=== PATIENT | female | born 1995 | race Caucasian/White ===

== ENCOUNTER 2016-06-16 17:36 | Emergency (ER) | payer MEDICAID ==
[~2016-06-16] VITALS: Ht 172.7 cm; Wt 85.3 kg
[~2016-06-16 17:36] MED LIST: FLEXERIL5 MG PO; IRON TABLETS325 MG PO; MACROBID 100MG100 MG PO; MOTRIN 400MG.400 MG PO; NITROFURANTOIN100 M4 PO; PERCOCET 5/3251 EACH PO; PRENATAL PLUS1 TA1 PO; TYLENOL WITH CO1 TA1 PO; VOLTAREN75 MG PO; [UNRECOGNIZED DRUG - REMARK]
--- NOTE | 2016-06-16 17:39 | Emergency Room Report ---
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 Clinical Suspician of Infection? Mental Status: Sepsis Risk: Have you (or family members/close friends) recently traveled outside the [place]? If Yes, where/when: Have you had exposure to infectious disease within the past month? TB? Other? Specify: Source patient, RN notes reviewed Exam Limitations no limitations Comment Pt is a [id number] who is now about 20 weeks gestation and has been told she has a small umbilical hernia by Dr. Montilla. 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 Sometimes the hernia hurts but it has never turned red or blue but she is tender in the upper part of the umbilicus. Cardiac Chest Pain Chest pain indicative of cardiac No ALLERGIES Coded Allergies: meperidine (From DEMEROL) (Mild, 03/24/16) Home Medications Active Scripts ACETAMINOPHEN WITH CODEINE (Tylenol With Codeine #3 Tablet) 1 TAB PO Q8HP PRN pain #12 TAB Prov: 03/24/16 Reported Medications MULTIVIT-MIN W/FE-FA ( Multivitamin Tablet) 1 TAB PO MIDDAY NITROFURANTOIN MONOHYD/M-CRYST (Nitrofurantoin [place]-Mcr 100 MG) 100 MG PO DAILY #10 History Medical History General CAD? No Angina: No MA: No Hypertension? No Hyperlipidemia? No CHF? No DVT? No PE? No COPD? No Asthma? No Anemia? No GERD? No Gastric ulcers? No GI Bleed? No Hernia? No Thyroid Problems? No Hypothyroidism? No CVA? No Seizures? No Diabetes? No Renal Insuffiency? No End Stage Renal Disease? No UTI? No Stones? No BPH? No GB Disease: No Nephritic Syndrome? No Asplenia? No Hepatitis? No Sickle Cell Disease? No Arthritis? No Migraines? No Cataracts? No Glaucoma? No MRSA? No HIV? No TB? No Anxiety? No Depression? No Cancer? No More? No Immunization Hx DT/Tetanus 1-4 YRS Flu 7070-7813 Flu Season Pneumonia Refuses Surgical Hx Previous Surgery?Y WISDOM TEETH Family History Family Hx Diabetes Yes Hypertension Yes Cancer Yes TB No Social History Alcohol Alcohol: No Review of Systems All Other Systems Reviewed and Negative Constitutional see HPI Gastrointestinal see HPI Genitourinary see HPI. Physical Exam Vital Signs Vital Signs Date Time Temp Pulse Resp B/P Pulse O2 O2 Flow FiO2 Ox Delivery Rate 06/16 1741 98.4 99 18 147/94 94 General Appearance normal appearance, WD/WN, no apparent distress Respiratory Status No: respiratory distress. Lung Sounds bilateral: normal breath sounds. Cardiovascular normal exam, regular rate/rhythm Gastrointestinal normal bowel sounds (FHT's 156), hernia (small umbilical hernia ) Neurologic alert, youth development specialist II-XII nml as tested Medical Decision Making LABS/Meds/Orders Pt receiving controlled substance in ED? No Results/Orders Laboratory Tests 06/16/16 1800: Urine Color YELLOW, Urine Appearance SL CLOUDY, Urine pH 6.0, Ur Specific [place] >= 1.030, Urine Protein NEGATIVE, Urine Ketones NEGATIVE, Urine Blood NEGATIVE, Urine Nitrate NEGATIVE, Urine Bilirubin NEGATIVE, Urine Urobilinogen 1.0, Ur Leukocyte Esterase TRACE H, Urine WBC 20-50, Ur Squamous Epith Cells 5- 10, Urine Bacteria 3+, Urine Mucus 1+, Urine Glucose NEGATIVE Orders Procedure Date/time Status CULTURE, URINE 06/16 1800 Active URINALYSIS/COMPLETE 06/16 175 Complete URINE 06/16 175 Complete Departure Departure Time of Disposition 1846 [facility]position [facility](routine) Clinical Impression Primary Impression: Cystitis without hematuria Secondary Impressions: Intrauterine Umbilical hernia without mention of obstruction or gangrene Qualifiers: Obstruction and gangrene presence: without obstruction or gangrene Qualified Code: K42.9 - Umbilical hernia without obstruction or gangrene Condition STABLE Referrals Shad WARE,Romie Min Patient Instructions DI for Urinary Tract Infection (UTI), Urinary Tract Infection Additional Instructions Pt given prescription for Amoxicillin 500 mg TID for UTI and instructed what to watch for with umbilical hernia regarding incarceration or strangulation. Advised to followup with OBGYN in the next 3 to 4 days to recheck urine as well. Also given excuse for Light duty only at work until seen by OBGYN on Saturday Discharge Counseling Counseled pt/family regarding diagnosis, test results, medications/RX, home care Prescriptions Current Visit Scripts Amoxicillin (Amoxicillin 500MG) 500 MG PO TID #30 CAP ED Critical Care Critical Care No If Critical Care minutes are documented, the time involved in the performance of seperately reportable procedures was not counted toward critical care time documented. I directly delivered medical care to this critically ill and/or injured patient. Timely evaluation and treatment was necessary to address the significant organ system(s) dysfunction present in this patient. at [id number]
--- NOTE | 2016-06-16 17:39 | Emergency Room Report ---
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 Clinical Suspician of Infection? Mental Status: Sepsis Risk: Have you (or family members/close friends) recently traveled outside the [place]? If Yes, where/when: Have you had exposure to infectious disease within the past month? TB? Other? Specify: Source patient, RN notes reviewed Exam Limitations no limitations Comment Pt is a [id number] who is now about 20 weeks gestation and has been told she has a small umbilical hernia by Dr. Montilla. 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 Sometimes the hernia hurts but it has never turned red or blue but she is tender in the upper part of the umbilicus. Cardiac Chest Pain Chest pain indicative of cardiac No ALLERGIES Coded Allergies: meperidine (From DEMEROL) (Mild, 03/24/16) Home Medications Active Scripts ACETAMINOPHEN WITH CODEINE (Tylenol With Codeine #3 Tablet) 1 TAB PO Q8HP PRN pain #12 TAB Prov: 03/24/16 Reported Medications MULTIVIT-MIN W/FE-FA ( Multivitamin Tablet) 1 TAB PO MIDDAY NITROFURANTOIN MONOHYD/M-CRYST (Nitrofurantoin [place]-Mcr 100 MG) 100 MG PO DAILY #10 History Medical History General CAD? No Angina: No [place]: No Hypertension? No Hyperlipidemia? No CHF? No DVT? No PE? No COPD? No Asthma? No Anemia? No GERD? No Gastric ulcers? No GI Bleed? No Hernia? No Thyroid Problems? No Hypothyroidism? No CVA? No Seizures? No Diabetes? No Renal Insuffiency? No End Stage Renal Disease? No UTI? No Stones? No BPH? No GB Disease: No Nephritic Syndrome? No Asplenia? No Hepatitis? No Sickle Cell Disease? No Arthritis? No Migraines? No Cataracts? No Glaucoma? No MRSA? No HIV? No TB? No Anxiety? No Depression? No Cancer? No More? No Immunization Hx DT/Tetanus 1-4 YRS Flu 3604-0374 Flu Season Pneumonia Refuses Surgical Hx Previous Surgery?Y WISDOM TEETH Family History Family Hx Diabetes Yes Hypertension Yes Cancer Yes TB No Social History Alcohol Alcohol: No Review of Systems All Other Systems Reviewed and Negative Constitutional see HPI Gastrointestinal see HPI Genitourinary see HPI. Physical Exam Vital Signs Vital Signs Date Time Temp Pulse Resp B/P Pulse O2 O2 Flow FiO2 Ox Delivery Rate 06/16 1741 98.4 99 18 147/94 94 General Appearance normal appearance, WD/WN, no apparent distress Respiratory Status No: respiratory distress. Lung Sounds bilateral: normal breath sounds. Cardiovascular normal exam, regular rate/rhythm Gastrointestinal normal bowel sounds (FHT's 156), hernia (small umbilical hernia ) Neurologic alert, deputy clerk of court II-XII nml as tested Medical Decision Making LABS/Meds/Orders Pt receiving controlled substance in ED? No Results/Orders Laboratory Tests 06/16/16 1800: Urine Color YELLOW, Urine Appearance SL CLOUDY, Urine pH 6.0, Ur Specific [place] >= 1.030, Urine Protein NEGATIVE, Urine Ketones NEGATIVE, Urine Blood NEGATIVE, Urine Nitrate NEGATIVE, Urine Bilirubin NEGATIVE, Urine Urobilinogen 1.0, Ur Leukocyte Esterase TRACE H, Urine WBC 20-50, Ur Squamous Epith Cells 5- 10, Urine Bacteria 3+, Urine Mucus 1+, Urine Glucose NEGATIVE Orders Procedure Date/time Status CULTURE, URINE 06/16 1800 Active URINALYSIS/COMPLETE 06/16 175 Complete URINE 06/16 175 Complete Departure Departure Time of Disposition 1846 Disposition [place] Home or Self Care(routine) Clinical Impression Primary Impression: Cystitis without hematuria Secondary Impressions: Intrauterine Umbilical hernia without mention of obstruction or gangrene Qualifiers: Obstruction and gangrene presence: without obstruction or gangrene Qualified Code: K42.9 - Umbilical hernia without obstruction or gangrene Condition STABLE Referrals Shad WARE,Romie Min Patient Instructions DI for Urinary Tract Infection (UTI), Urinary Tract Infection Additional Instructions Pt given prescription for Amoxicillin 500 mg TID for UTI and instructed what to watch for with umbilical hernia regarding incarceration or strangulation. Advised to followup with OBGYN in the next 3 to 4 days to recheck urine as well. Also given excuse for Light duty only at work until seen by OBGYN on Saturday Discharge Counseling Counseled pt/family regarding diagnosis, test results, medications/RX, home care Prescriptions Current Visit Scripts Amoxicillin (Amoxicillin 500MG) 500 MG PO TID #30 CAP ED Critical Care Critical Care No If Critical Care minutes are documented, the time involved in the performance of seperately reportable procedures was not counted toward critical care time documented. I directly delivered medical care to this critically ill and/or injured patient. Timely evaluation and treatment was necessary to address the significant organ system(s) dysfunction present in this patient. at [id number]
[2016-06-16 18:12] LABS: URINE BILIRUBIN - DIPSTICK NEGATIVE (NEG); URINE BLOOD NEGATIVE (NEG)
[2016-06-16] MEDS ORDERED: AMOXICOT500 MG PO (18:52)
[2016-06-16 19:10] VITALS: BP 136/88
== END 2016-06-16 19:10 | disposition home or self-care (01) ==
LOC: ER 17:36
PROVIDERS: General Practice
DX: O23.12 Infections of bladder in pregnancy, second trimester (principal); N30.00 Acute cystitis without hematuria; Z3A.20 20 weeks gestation of pregnancy

== ENCOUNTER 2016-07-27 18:13 | Outpatient (CLI) | payer MEDICAID ==
[~2016-07-27] VITALS: Ht 172.7 cm; Wt 88.9 kg
[~2016-07-27 18:13] MED LIST changes: +AMOXICOT500 MG PO
[2016-07-27 18:51] VITALS: BP 141/80
[2016-07-27] MEDS ORDERED: IRON TABLETS325 MG PO (18:55)
[2016-07-27] MEDS ORDERED: MIRALAX17 GM/PACK PO (18:56)
[2016-07-27 19:39] LABS: URINE BILIRUBIN - DIPSTICK NEGATIVE (NEG); URINE BLOOD NEGATIVE (NEG)
[2016-07-27 19:53] LABS: URINE SQUAMOUS CELLS 50-100 #/hpf (0-5)
== END 2016-07-27 19:50 | disposition home or self-care (01) ==
LOC: OBOUT 18:13 → OB 18:15 → OBOUT 19:50
PROVIDERS: Obstetrics & Gynecology
DX: O26.92 Pregnancy related conditions, unspecified, second trimester (principal); Z3A.25 25 weeks gestation of pregnancy

== ENCOUNTER → 2016-09-19 | Outpatient (CLI) | payer MEDICAID ==
[~2016-09-19] MED LIST changes: +CLASSIC PRENAT1 EACH PO; +FERROUS SULFAT200 M1 PO; +MIRALAX17 GM/PACK PO
--- NOTE | 2016-09-19 15:15 | RADIOLOGY REPORT PS360 ---
PROCEDURE: 2-D M-mode and color Doppler study INDICATIONS FOR THE TEST: Chest pain COPD Heart Murmur Tobacco Smoking Palpitations+ Fatigue Syncope Edema Hypertension+Diabetes Mellitus Rheumatic Fever SOB+SMITH Obesity Hyperlipidemia Family History HD Additional History due November 03 SV PATIENT INFORMATION HEIGHT: 68 WEIGHT: 203 GENDER: Female B/P: 119/79 2-D/M-MODE INTERPRETATION: 2-D MEASUREMENTS OBSERVED VALUES IN CMS Right Ventricular Dimension (RVDd) 1.4 Interventricular Septum (Thickness)(IVsd) 0.8 Left Ventricular Internal Dimensions(LVIDd) 5.0 Left Ventricular Posterior Wall (Thickness)(LVPWd) 0.9 Aortic Root 2.3 Aortic Cusp Separation 2.3 Left Atrial Dimensions (LAD) 3.4 2D 1. Left atrium is normal size, left ventricle is normal size, there is preserved left ventricular systolic function, visually estimated ejection fraction of 55% with no obvious regional wall motion abnormality. 2. The right atrium and right ventricle are normal size and contractility. 3. The aortic mitral and tricuspid valve is structurally normal. 4. The pulmonic valve is not well visualized. 5. No significant pericardial effusion noted. DOPPLER INTERROGATION: Doppler interrogation of the aortic mitral and tricuspid valve reveals presence of trace mitral and tricuspid regurgitation of no hemodynamic significance. Diastolic parameters are within normal range CONCLUSION: 1. Normal left ventricular size, visually estimated to fraction 55% with no obvious regional wall motion abnormality. 2. Trace mitral and tricuspid regurgitation, tricuspid and enteric velocity insufficient for acquisition of the right ventricular systolic pressure. 3. The diastolic parameters are within normal range. 4. No significant pericardial effusion noted.
== END ==
LOC: RT 13:45
DX: I47.1 Supraventricular tachycardia (principal)

== ENCOUNTER 2017-03-02 17:33 | Emergency (ER) | payer MEDICAID ==
[~2017-03-02] VITALS: Ht 170.2 cm; Wt 81.6 kg
[~2017-03-02 17:33] MED LIST changes: +BISOPROLOL 5MG T5 MG PO; +FERROUS SULFAT325 M2 PO; +KEFLEX500 M1; +LANOXIN0.125 MG PO
--- OUTSIDE RECORDS SUMMARY | 2017-03-02 17:50 | External Medical Summary Rpt | CCD ---
Author Author , TRAE LARKIN Address Unknown Phone [email or web address] Care Team Providers Care Educational Director Name Role Phone [facility] Unavailable Unavailable [place], [facility] [place] RADHA DOCKERY MD, Unavailable Unavailable RADHA Garcia MD, Unavailable Unavailable Ton Garcia MD Purpose Continuity of Care Document - 04-12-2010 through 2016 Problems Code Diagnosis DOS Provider Status 558.9 558.9 08-12-2012 [facility] IT NEC 780.79 780.79 OTH 08-12-2012 [facility]&FAT [facility] 847.2 847.2 07-14-2012 [facility] Allergies, Adverse Reactions, Alerts Type Allergy to substance Adverse Reaction to Substance Substance Reaction Severity NO KNOWN ALLERGIES Unknown Unknown Medications Na ND Rx Da Fi Fi Am Da Di Ph RX Ph St me C No te ll ll ou ys ag ar # ys at rm s nt no ma ic us Or Da si cy ia de te s n re d AC 51 03 0 No ET 07 -1 AM 90 1- Lo IN 16 20 ng OP 19 13 er HE 9H N Ac W/ ti CO ve DE IN E #3 TA K IN 51 03 0 No DO 07 -1 ME 90 1- Lo TH 19 20 ng AC 02 13 er IN 0 Ac 25 ti ve MG CA PS UL E BA 00 03 10 2 60 10 EA 21 RI Ac NO 90 -2 -[address] 79 SH ti PH 45 2- 5- 00 SI 78 ER ve EN 30 20 20 DE 66 11 11 RI 25 0 PH CH AR AR MG MA D CY CA PS OF UL E CY NT HI AN A BA 00 03 09 2 60 10 EA 21 RI Ac NO 90 -2 -[address] 79 SH ti PH 45 2- 2- 00 SI 78 ER ve EN 30 20 20 DE 66 11 11 RI 25 0 PH CH AR AR MG MA D CY CA PS OF UL E CY NT HI AN A PE 00 09 09 1 60 1 EA 24 MO Ac RM 47 -2 -[address] 17 SE ti ET 20 0- 0- 00 SI 44 S ve HR [address] IN 26 11 11 EP 0 PH HE 5% AR N MA A CR CY EA M OF CY NT HI AN A ME 00 09 09 0 21 6 EA 24 MO Ac TH 78 -2 -[address] 17 SE ti YL 15 0- 0- 00 SI 45 S ve NV [address] ED 20 11 11 EP NI 7 PH HE SO AR N LO MA A NE CY 4 OF MG CY DO NT SE HI PK AN A CE 45 09 09 2 30 30 EA 24 MO Ac TI 80 -2 -[address] 17 SE ti RI 20 0- 0- 00 SI 46 S ve ZI [address] NE 98 11 11 EP 7 PH HE HC AR N L MA A 10 CY MG OF TA CY BL NT ET HI AN A ST 00 06 06 0 4. 1 EA 23 AT Ac RO 00 -2 -[address] 06 KI ti ME 60 3- 3- 0 SI [address] 03 20 20 DE OL 22 11 11 TR 3 0 PH AC AR I MG MA V CY TA BL OF ET CY NT HI AN A CE 45 04 05 2 30 30 EA 22 AT Ac TI 80 -1 -[address] 11 KI ti RI 20 4- 7- 00 SI 97 NS ve ZI 91 20 20 DE NE 98 11 11 TR 7 PH AC HC AR I L MA V 10 CY MG OF TA CY BL NT ET HI AN A PA 00 04 04 0 5. 30 EA 22 RI Ac TA 06 -2 -[address] 19 SH ti NO 50 0- 0- 0 SI 59 ER ve L 27 20 20 DE 0. 10 11 11 RI 1% 5 PH CH AR AR EY MA D E CY DR OP OF S CY NT HI AN A 00 04 04 2 50 30 EA 22 AT Ac 06 -1 -[address] 11 KI ti 60 4- 4- 00 SI 95 NS ve 49 20 20 DE 45 11 11 TR 5 PH AC AR I MA V CY OF CY NT HI AN A TR 45 04 04 0 45 15 EA 22 AT Ac IA 80 -1 -[address] 11 KI ti MC 20 4- 4- 00 SI 96 NS ve IN 06 20 20 0 DE OL 40 11 11 TR ON 5 PH AC E AR I 0. MA V 1% CY CR OF EA M CY NT HI AN A CE 45 04 04 2 30 30 EA 22 AT Ac TI 80 -1 -[address] 11 KI ti RI 20 4- 4- 00 SI 97 NS ve ZI 91 20 20 DE NE 98 11 11 TR 7 PH AC HC AR I L MA V 10 CY MG OF TA CY BL NT ET HI AN A BA 00 03 03 2 60 10 EA 21 RI Ac NO 90 -2 -[address] 79 SH ti PH 45 2- 2- 00 SI 78 ER ve EN 30 20 20 DE 66 11 11 RI 25 0 PH CH AR AR MG MA D CY CA PS OF UL E CY NT HI AN A PE 00 03 03 0 59 1 EA 21 RI Ac RM 47 -2 -[address] 78 SH ti ET 25 1- 1- 00 SI 46 ER ve HR 24 20 20 DE IN 26 11 11 RI 7 PH CH 1% AR AR MA D LO CY TI ON OF CY NT HI AN A PE 00 03 03 0 60 1 EA 21 RI Ac RM 47 -1 -[address] 68 SH ti ET 20 4- 4- 00 SI 53 ER ve HR 24 20 20 DE IN 26 11 11 RI 0 PH CH 5% AR AR MA D CR CY EA M OF CY NT HI AN A HY 16 02 02 1 30 5 EA [address] 71 -2 -[address] 35 SH ti OX 40 2- 2- 00 SI 90 ER ve YZ 08 20 20 DE IN 20 11 11 RI E 4 PH CH HC AR AR L MA D 25 CY MG OF TA CY BL NT ET HI AN A [place] 00 12 12 0 6. 5 EA 20 WR Ac IT 09 -3 -[address] 61 IG ti HR 37 1- 1- 0 SI 97 HT ve OM 14 20 20 DE YC 61 10 10 AR IN 8 PH DY AR C 25 MA 0 CY MG OF TA BL CY ET NT HI AN A CE 00 12 12 0 21 7 EA 20 WR Ac PH 09 -1 -[address] 45 IG ti AL 33 8- 8- 00 SI 64 HT ve EX 14 20 20 DE IN 70 10 10 AR 5 PH DY 50 AR C 0 MA MG CY CA OF PS UL CY E NT HI AN A 60 12 12 0 12 3 EA 20 WR Ac 25 -1 -[address] 45 IG ti 80 8- 8- 00 SI 65 HT ve 23 20 20 0 DE 91 10 10 AR 6 PH DY AR C MA CY OF CY NT HI AN A RA 53 12 12 2 60 30 EA 20 MO Ac NI 74 -0 -[address] 31 SE ti TI 60 8- 8- 00 SI 04 S ve DI [address] NE 30 10 10 EP 5 PH HE 15 AR N 0 MA A MG CY TA OF BL ET CY NT HI AN A Vital Signs 08-12-2012 15:27 Name Value Interpretat Reference Comment ion Range BP 59 mm[Hg] Diastolic BP Systolic 113 mm[Hg] Heart 85 /min Rate/Pulse O2% 100 % Respiratory 20 /min Rate 08-12-2012 15:02 Name Value Interpretat Reference Comment ion Range Body 98.7 [degF] Temperature 08-12-2012 14:01 Name Value Interpretat Reference Comment ion Range BP 68 mm[Hg] Diastolic BP Systolic 115 mm[Hg] Heart 112 /min Rate/Pulse O2% 100 % Respiratory 20 /min Rate 07-14-2012 22:33 Name Value Interpretat Reference Comment ion Range BP 60 mm[Hg] Diastolic BP Systolic 111 mm[Hg] Heart 101 /min Rate/Pulse O2% 98 % Respiratory 20 /min Rate 07-14-2012 22:08 Name Value Interpretat Reference Comment ion Range BP 68 mm[Hg] Diastolic BP Systolic 131 mm[Hg] Heart 109 /min Rate/Pulse O2% 100 % Respiratory 20 /min Rate Results Labs Lab Lab Date Result Refere Interp Status Commen Order Detail nces retati t Range on B-HCG Ur Ql (08-12-2012 14:15) B-HCG NEGATIV NEG complet Ur Ql 013 E ed 14:15 URINALYSIS/COMPLETE (08-12-2012 14:15) URINE YELLOW YELLOW complet COLOR 013 ed 14:15 URINE Sl CLEAR complet APPEARA 013 Cloudy ed NCE 14:15 URINE NEGATIV NEG complet GLUCOSE 013 E ed - 14:15 DIPSTIC K URINE NEGATIV NEG complet BILIRUB 013 E ed IN - 14:15 DIPSTIC K URINE NEGATIV NEG complet KETONE 013 E mg/dL ed 14:15 URINE 1.010 1.005-1 complet SPECIFI 013 UNK .030 ed C 14:15 GRAVITY URINE NEGATIV NEG complet BLOOD 013 E ed 14:15 URINE 6.0 UNK 5.0-8.5 complet PH 013 ed 14:15 URINE NEGATIV NEG complet PROTEIN 013 E mg/dL ed - 14:15 DIPSTIC K URINE 0.2 NEG complet UROBILI 013 E.U./dL ed NOGEN - 14:15 DIPSTIC K URINE NEGATIV NEG complet NITRATE 013 E ed - 14:15 DIPSTIC K URINE 1+ NEG complet LEUK 013 ed ESTERAS 14:15 E URINE 5-10 O complet WBC 013 wbc/hpf ed 14:15 URINE 20-50 0-5 complet SQUAMOU 013 #/hpf ed S CELLS 14:15 URINE 1+ O complet BACTERI 013 ed A 14:15 B-HCG Ur Ql (07-14-2012 21:25) B-HCG NEGATIV NEG complet Ur Ql 013 E ed 21:25 URINALYSIS/COMPLETE (07-14-2012 21:25) URINE YELLOW YELLOW complet COLOR 013 ed 21:25 URINE Sl CLEAR complet APPEARA 013 Cloudy ed NCE 21:25 URINE NEGATIV NEG complet GLUCOSE 013 E ed - 21:25 DIPSTIC K URINE 07-14-2 NEGATIV NEG complet BILIRUB 013 E ed IN - 21:25 DIPSTIC K URINE 07-14-2 NEGATIV NEG complet KETONE 013 E mg/dL ed 21:25 URINE 1.025 1.005-1 complet SPECIFI 013 UNK .030 ed C 21:25 GRAVITY URINE 07-14-2 NEGATIV NEG complet BLOOD 013 E ed 21:25 URINE 07-14-2 6.5 UNK 5.0-8.5 complet PH 013 ed 21:25 URINE 2 NEGATIV NEG complet PROTEIN 013 E mg/dL ed - 21:25 DIPSTIC K URINE 2.0 NEG complet UROBILI 013 E.U./dL ed NOGEN - 21:25 DIPSTIC K URINE NEGATIV NEG complet NITRATE 013 E ed - 21:25 DIPSTIC K URINE NEGATIV NEG complet LEUK 013 E ed ESTERAS 21:25 E URINE 5-10 0 complet RBC 013 rbc/hpf ed 21:25 URINE 3-5 O complet WBC 013 wbc/hpf ed 21:25 URINE 10-20 0-5 complet SQUAMOU 013 #/hpf ed S CELLS 21:25 URINE 1+ O complet BACTERI 013 ed A 21:25 Encounters Encounter Start End Date Code Location Performer Type Date Emergency ANNE DOCKERY MD (ER) 3 13:26 3 15:27 [facility] Emergency ANNE Garcia MD (ER) 3 21:43 3 22:35 [facility]
--- OUTSIDE RECORDS SUMMARY | 2017-03-02 17:50 | External Medical Summary Rpt | CCD ---
Author Author , TRAE LARKIN Address Unknown Phone [email or web address] Care Team Providers Care Electroplating Technician Name Role Phone [facility] Unavailable Unavailable [place], [facility] [place] RADHA DOCKERY MD, Unavailable Unavailable RADHA Garcia MD, Unavailable Unavailable Ton Garcia MD Purpose Continuity of Care Document - 04-12-2010 through 2016 Problems Code Diagnosis DOS Provider Status 558.9 558.9 08-12-2012 [facility] IT NEC 780.79 780.79 OTH 08-12-2012 [facility]&FAT [facility] 847.2 847.2 07-14-2012 [facility] Allergies, Adverse Reactions, Alerts Type [...] 0- 0- 00 SI 45 S ve FL [address] ED 20 [...] DOCKERY MD (ER) 3 13:26 3 15:27 [facility] Emergency ANNE Garcia MD (ER) 3 21:43 3 22:35 [facility]
[2017-03-02] MEDS ORDERED: AMOXICILLIN 50500 MG PO (17:54)
--- OUTSIDE RECORDS SUMMARY | 2017-03-02 17:55 | External Medical Summary Rpt | CCD ---
Author Author , TRAE Tirado TRAE Address Unknown Phone [email or web address] [facility] Care Team Providers Care Hogshead Hand Name Role Phone A Ashlie WOODARD MD PSC, Scot Unavailable Unavailable Ashlie WOODARD MD PSC [facility], Unavailable Unavailable [facility] ATKINS TRA, ATKINS Unavailable Unavailable TRA KORTNEY CHERRIE, KORTNEY CHERRIE Unavailable Unavailable JESUS, JESUS Unavailable Unavailable JOHNSON, JOHNSON Unavailable Unavailable JOHNSON JAQUI, JOHNSON Unavailable Unavailable JAQUI JOHNSON JAQUI, JOHNSON Unavailable Unavailable JAQUI [facility] Unavailable Unavailable [place], [facility] Unavailable Unavailable [facility] [place], [facility]UE MARYJANE, MARYJANE Unavailable Unavailable ANTHONY ARISTEO, ANTHONY Unavailable Unavailable ARISTEO [facility] Unavailable Unavailable [facility], [facility] [place] DENNIS SHA, DENNIS Unavailable Unavailable SHA FEEBACK, FEEBACK Unavailable Unavailable FIELD AMB, FIELD AMB Unavailable Unavailable FIELD AMB, FIELD AMB Unavailable Unavailable FRYMAN EUG, FRYMAN Unavailable Unavailable EUG JR CLEMENCIA, CLEMENCIA, Unavailable Unavailable JR OMAIRA, OMAIRA Unavailable Unavailable OMAIRA ARISTEO, OMAIRA Unavailable Unavailable ARISTEO KAITLIN CROW MD, Unavailable Unavailable KAITLIN CROW MD HARPEL, HARPEL Unavailable Unavailable HARPEL FORTINO, HARPEL Unavailable Unavailable FORTINO [facility] Unavailable Unavailable [place], [facility] Unavailable Unavailable [place], [facility] Unavailable Unavailable [facility], [facility] Unavailable Unavailable [facility], [facility] Unavailable Unavailable INC, [facility] Unavailable Unavailable [facility], [facility] Unavailable Unavailable [facility] P, [facility] P MAGALLANES HARRIS, MAGALLANES HARRIS Unavailable Unavailable MAGALLANES HARRIS, MAGALLANES HARRIS Unavailable Unavailable GRACE MAGALLANES A, Unavailable Unavailable GRACE MAGALLANES A [facility], Unavailable Unavailable [facility], [facility] KILPELA JEA, KILPELA Unavailable Unavailable JEA KILPELA JEA, KILPELA Unavailable Unavailable JEA ANGELA JR, ANGELA JR Unavailable Unavailable CATRACHO TOD, CATRACHO TOD Unavailable Unavailable CATRACHO TOD, CATRACHO TOD Unavailable Unavailable MULBERRY, JESSICA T, Unavailable Unavailable MULBERRY, JESSICA T ESTEFANIA MAC Unavailable Unavailable O'MEKA ASHWINI, O'MEKA Unavailable Unavailable ASHWINI [facility], Unavailable [facility]available [facility], [facility] PICKMATTHEW JR, Unavailable Unavailable PICKLESIMER JR [facility], Unavailable Unavailable [facility], Unavailable Unavailable [facility] NEFTALY LARISSA, NEFTALY Unavailable Unavailable LARISSA NEFTALY, ILIR, Unavailable Unavailable NEFTALY, ILIR [facility], Unavailable Unavailable [facility] CAM SCIFRES ANG, SCIFRES Unavailable Unavailable ANG SCIFRES ANG, SCIFRES Unavailable Unavailable ANG SCIFRES MICHAELA M, Unavailable Unavailable SCIFRES, MICHAELA M ZOFIA ARMIJO Unavailable Unavailable NICHOLAS SHE, Unavailable Unavailable NICHOLAS SHE [facility] Unavailable Unavailable [facility] Unavailable Unavailable PH[facility]ICIANS, [facility] EVELIO [facility], Unavailable Unavailable [place], [facility] Unavailable Unavailable DEPT [facility], [facility] DEPT [facility] Unavailable Unavailable DEPT [facility], [facility] DEPT [facility] MINGO LEVIN Unavailable Unavailable MINGO LEVIN Unavailable Unavailable WOODARD A, WOODARD A Unavailable Unavailable WOODARD ZHANE, WOODARD Unavailable Unavailable ZHANE Purpose Continuity of Care Document - 06-10-2007 through 2016 Problems Code Diagnosis DOS Provider Status I471 SUPRAVENTRI 12-20-2016 [facility] TACHYCARDIA PHYSICIANS R002 PALPITATION 12-20-2016 [facility] R0602 SHORTNESS 12-20-2016 OF BREATH [facility] [id number] OTHER LONG 12-20-[address] [facility] CURRENT [facility] DRUG [facility] THERAPY O36284 ENCOUNTER 12-12-2016 [facility] INSERTION PHYSICIANS INTRAUTERIN GROUP E CONTRACEPT DEVC Z392 ENCOUNTER 11-28-2016 [facility] FOLLOW-UP N858 OTHER 10-30-2016 [facility] NONINFLAMMA INC TORY DISORDERS UTERUS B88651 MATERNAL 10-30-2016 [facility] CARE LW PHYSICIANS TRANS SCAR GROUP PREV DEL J67970 MATERNAL 10-30-2016 [facility] CARE UNS ANESTH OF TYPE SCAR THE BLUE PREV DEL [id number] MATERNAL 10-30-2016 [facility] INC GROWTH 3RD TRI NA/UNS O655 OBSTRUCTED 10-30-2016 [facility] DUE [facility] ABNORMAL INC MAT PELVIC ORGANS O82 ENCOUNTER 10-30-2016 [facility] FOR CD PHYSICIANS WITHOUT GROUP INDICATION Z370 SINGLE LIVE 10-30-2016 [facility] Z3A39 39 WEEKS 10-30-2016 [facility]STATION [facility] OF INC Z3480 ENC 10-29-2016 [facility] SUPERVISION PHYSICIANS OTH NORMAL GROUP PREG UNS TRIMESTER Z3493 ENC 10-25-2016 [facility] SUPERVISION PHYSICIANS NORMAL GROUP UNS 3 TRIMESTER O4703 FALSE LABOR 10-04-2016 [facility] BEFORE 37 PHYSICIANS CMPLETE GROUP WEEKS GEST 3RD TRI O6003 10-04-2016 [facility] LABOR [facility] WITHOUT INC DELIVERY THIRD TRIMESTER Z3A35 35 WEEKS 10-04-2016 [facility] OF INC O2693 09-25-2016 [facility] CONDITIONS INC UNS 3RD TRIMESTER Z331 09-25-2016 [facility] STATE PHYSICIANS INCIDENTAL GROUP Z3A32 32 WEEKS 09-11-2016 [facility] OF INC O9989 OTH DZ & 09-09-2016 [facility] COMP [facility], PREG PLLC CHILDBIRTH PUERPERIUM R000 TACHYCARDIA 09-09-2016 [facility] P U41099 ABNORMAL 07-30-2016 [facility] GLUCOSE PHYSICIANS COMPLICATIN GROUP G O2692 07-27-2016 [facility] CONDITIONS INC UNS 2ND TRIMESTER Z3A25 25 WEEKS 07-27-2016 [facility] OF INC O471 FALSE LABOR 07-25-2016 [facility] AT/AFTER PHYSICIANS 37 GROUP COMPLETED WEEKS GEST Z3492 ENC 06-29-2016 [facility] MEDICAL NORMAL IMAGING ASS UNS 2 TRIMESTER Z36 ENCOUNTER 06-29-2016 [facility] FOR [facility] INC SCREENING OF MOTHER Z3A22 22 WEEKS 06-29-2016 [facility] OF IMAGING ASS K429 UMBILICAL 06-16-2016 [facility] HERNIA [facility], WITHOUT PLLC OBSTRUCTION OR GANGRENE N3000 ACUTE 06-16-2016 [facility]STITIS [facility] WITHOUT INC HEMATURIA O2312 INFECTIONS 06-16-2016 [facility] BLADDER IN PHYSICIANS, [facility] SECOND TRIMESTER Z3A20 20 WEEKS 06-16-2016 [facility] GESTATION PHYSICIANS, OF [facility] Z3491 ENC 03-26-2016 [facility] MEDICAL NORMAL IMAGING ASS UNS 1 TRIMESTER Z3A00 WEEKS OF 03-26-2016 [facility] GESTATION [facility] OF INC NOT SPECIFIED Z3A08 8 WEEKS 03-26-2016 [facility] OF IMAGING ASS M545 LOW BACK 03-24-2016 [facility] PAIN [facility]YSICIANS, [facility] O2691 03-24-2016 [facility], CONDITIONS [facility] UNS 1ST TRIMESTER Z3201 ENCOUNTER 03-19-2016 [facility] FOR PHYSICIANS GROUP TEST RESULT POSITIVE H5203 HYPERMETROP 01-16-2016 MAGALLANES HARRIS IA BILATERAL W41305 ENCOUNTER 10-11-2015 [facility] INITIAL PHYSICIANS PRESCRIPTIO GROUP N CONTRACEPT PILLS Z3009 ENCOUNTER 10-11-2015 [facility] OT GENERAL PHYSICIANS GROUP [employer]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 CONTRACEPT L22666 ACUTE 08-30-2015 [facility] SUPPURATIVE PHYSICIANS OM W/O GROUP RUPT EAR DRUM UNS EAR J0190 ACUTE 08-30-2015 [facility] SINUSITIS PHYSICIANS UNSPECIFIED GROUP J029 ACUTE 08-30-2015 [facility] PHARYNGITIS PHYSICIANS GROUP UNSPECIFIED Z3040 ENCOUNTER 06-09-2015 [facility] FOR PHYSICIANS SURVEILLANC GROUP E CONTRACEPTI VES UNS J069 ACUTE UPPER 04-20-2015 A Ashlie WOODARD MD PSC RESPIRATORY INFECTION UNSPECIFIED B349 VIRAL 02-28-2015 A Ashlie WOODARD INFECTION [facility] UNSPECIFIED 3670 HYPERMETROP 01-28-2015 SCIFRES ANG IA V2542 SURVEILLANC 12-10-2014 [facility] E PREV PRSC PHYSICIANS INTRAUTERN GROUP CNTRACPT DEVC V2549 SURVEILLANC 12-10-2014 [facility] E OTH PREV PHYSICIANS PRSC GROUP CONTRACEPT METHOD 3688 OTHER 09-24-2014 [facility] VISUAL DISTURBANCE S 52497 UNSPECIFIED 08-25-2014 A Ashlie WOODARD INFECTIVE PSC OTITIS EXTERNA 65548 ACUTE 08-25-2014 A Ashlie WOODARD SEROUS PSC OTITIS MEDIA 82737 DYSFUNCTION 08-25-2014 A Ashlie FLETCHER PSC EUSTACHIAN TUBE V8522 BODY MASS 08-25-2014 A Ashlie WOODARD INDEX PSC 26.0-26.9 ADULT 4660 ACUTE 07-12-2014 A Ashlie WOODARD BRONCHITIS PSC 3829 UNSPECIFIED 06-28-2014 A Ashlie WOODARD OTITIS PSC MEDIA 7840 HEADACHE 06-16-2014 [facility] V2511 ENC FOR 04-20-2014 [facility] INSERTION PHYSICIANS INTRAUTERIN GROUP E CONTRACEPT DEVICE V242 ROUTINE 03-29-2014 [facility] PHYSICIANS FOLLOW-UP GROUP 77582 FETOPELVIC 03-15-2014 [facility] DISPROPORTI PHYSICIANS ON, GROUP DELIVERED 82289 UNUSUALLY 03-15-2014 [facility] LARGE FETUS PHYSICIANS CAUS GROUP DISPROPRTN DELIVERED 17976 EXCESS 03-15-2014 [facility] PHYSICIANS GROWTH GROUP AFFECT MGMT MOTH ANTPRTM 88328 C/S DELIV 03-15-2014 COMMUNITY W/O INDICAT ANESTH OF DELIV W/WO THE BLUE ANTPRTM COND V270 OUTCOME OF 03-15-2014 [facility] DELIVERY PHYSICIANS SINGLE GROUP LIVEBORN 93553 POLYHYDRAMN 03-11-2014 [facility] IOS PHYSICIANS ANTEPARTUM GROUP COMPLICATIO N 19773 OTHER 03-09-2014 KAITLIN Schilling THREATENED [facility] LABOR, ANTEPARTUM 28826 THREATENED 03-07-2014 [facility] LABOR INC ANTEPARTUM V220 SUPERVISION 03-03-2014 ALEX JAQUI OF NORMAL FIRST V286 SCREENING 02-24-2014 ALEX NAILS OF STREPTOCOCC US B 4779 ALLERGIC 02-23-2014 A Ashlie WOODARD RHINITIS PSC CAUSE UNSPECIFIED 17745 UNSPEC 02-18-2014 KAITLIN Schilling MALCONNOR CROW MD /MALPRESENT ATION FETUS ANTPRTM 7821 RASH AND 02-04-2014 Scot CARTWRIGHT MD PSC NONSPECIFIC SKIN ERUPTION 53187 ABN MAT 12-26-2013 [facility] GLUCOSE [facility] TOLERANCE INC COMPL PG CB/PP UNS EOC 32817 ABNORMAL 12-21-2013 [facility]LEX NA[facility]S MATERNAL GLUCOSE TOLERANCE ANTEPARTUM 462 ACUTE 12-17-2013 FIELD AMB PHARYNGITIS 4659 ACUTE URIS 12-17-2013 FIELD AMB OF UNSPECIFIED SITE 7242 LUMBAGO 12-10-2013 [facility] INC V222 12-10-2013 [facility] INCIDENTAL INC V283 ENCOUNTER 11-11-2013 [facility] ROUTINE SCREEN MALFORMATIO N ULTRASONIC 24760 ASYMPTOMATI 09-02-2013 [facility] Dailey BACTERIURIA ANTEPARTUM 96533 ACUTE 08-27-2013 FIELD [facility] GINGIVITIS PLAQUE INDUCED 55673 OTHER 08-27-2013 FIELD AMB SPECIFIED TMJ DISORDERS 78362 OTHER 08-06-2013 [facility] SPECIFED COMPLICATIO N ANTEPARTUM V2389 SUPERVISION 07-27-2013 [facility] NA[facility] OF OTHER HIGH-RISK V7242 07-27-2013 [facility] NA[facility] EXAMINATION OR TEST POSITIVE RESULT V2689 OTHER 07-22-2013 [facility] SPECIFIED DISTRICT PROCREATIVE [facility] DEPT MANAGEMENT DARRYN 27483 UNSPECIFIED 07-15-2013 KILPELA JEA VIRAL INFECTION IN CCE & UNS SITE 95184 POSTNASAL 07-13-2013 [facility] DRIP PHYSICIANS GROUP 5990 URINARY 06-29-2013 [facility] TRACT PHYSICIANS INFECTION GROUP SITE NOT SPECIFIED 6264 IRREGULAR 06-29-2013 [facility] MENSTRUAL PHYSICIANS CYCLE GROUP 5589 OTH&UNSPEC 05-18-2013 FIELD AMB NONINFECTIO US GASTROENTER ITIS&COLITI S 01201 FEVER 04-15-2013 KILPELA JEA UNSPECIFIED V720 EXAMINATION 02-27-2013 MAGALLANES HARRIS OF EYES AND VISION 73528 URINARY 01-17-2013 A Ashlie WOODARD FREQUENCY PSC 8488 OTHER 11-27-2012 A Ashlie WOODARD SPECIFIED PSC SITES OF SPRAINS AND STRAINS 72247 ABDOMINAL 08-26-2012 A Ashlie WOODARD PAIN, PSC GENERALIZED 25597 OTHER 08-12-2012 [facility] FATIGUE INC 8472 LUMBAR 07-14-2012 [facility] SPR[facility] STRAIN INC 75862 NAUSEA 05-21-2012 KILPELA JEA ALONE 463 ACUTE 02-26-2012 [facility] TOD TONSILLITIS 55772 NAUSEA WITH 09-18-2011 [facility] TOD VOMITING 74053 CONTUSION 08-07-2011 [facility] TOD OF KNEE 1330 SCABIES 06-18-2011 CAT[facility] TOD V2541 SURVEILLANC 06-07-2011 [facility] E PREV HEALTH PRESCRIBED CENTER CONTRACEPT PILL 2662 OTHER 04-11-2011 [facility] B-COMPLEX HEALTH DEFICIENCIE CENTER S 6918 OTHER 01-23-2011 A Ashlie WOODARD ATOPIC PSC DERMATITIS AND RELATED CONDITIONS V2501 GENERAL 01-16-2011 [facility] COUNSELING HEALTH PRESCRIPTIO CENTER N ORAL CONTRACEPTS V069 NEED PROPH 10-31-2010 [facility] VACCINATION HEALTH W/UNSPEC CENTER COMB VACCINE V2509 OTH GENERAL 10-31-2010 [facility] CNSL&ADVICE CENTER CONTRACEPT MANAGEMENT 2165 BENIGN 10-26-2010 [facility] 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 6982 PRURIGO 10-26-2010 [facility] 5368 DYSPEPSIA&O 09-07-2010 [facility] CO THER SPEC MIDDLE DISORDERS SCHOOL FUNCTION STOMACH 9953 ALLERGY 08-23-2010 A Ashlie WOODARD UNSPECIFIED PSC NOT ELSEWHERE CLASSIFIED 00462 OTHER 08-21-2010 [facility] CO DISEASES OF MIDDLE NASAL SCHOOL CAVITY AND SINUSES 6929 CONTACT 08-17-2010 [facility] DERMATITIS& DERMATOLOGY OTHER ECZEMA DUE UNSPEC CAUSE 7061 OTHER ACNE 08-17-2010 [facility] 7068 OTHER 08-17-2010 [facility] SPECIFIED DERMATOLOGY DISEASE OF SEBACEOUS GLANDS 63954 DYSCHROMIA, 08-17-2010 [facility] UNSPECIFIED 6989 UNSPECIFIED 07-13-2010 [facility] CO PRURITIC MIDDLE DISORDER SCHOOL 0088 INTESTINAL 04-12-2010 A Ashlie WOODARD INFECTION PSC DUE TO OTHER ORGANISM NEC 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 VENEREAL PSC DISEASE 78040 OTHER SPEC 01-12-2009 [facility], GASTRITIS DON R WITHOUT MENTION HEMORRHAGE 460 ACUTE 07-22-2008 [facility] ITIS V202 ROUTINE 09-24-2007 [facility] ACCT CHECK Medications Na ND Rx Da Fi Fi Am Da Di Ph RX Ph St me C No te ll ll ou ys ag ar # ys at rm s nt no ma ic us Or Da si cy ia de te s n re d BI 00 07 08 15 30 00 EA Ac SO 18 -1 -[address] ti SC 50 8- 1- 00 00 SI ve OL 77 20 20 48 DE OL 13 17 17 67 0 07 PH FU AR MA MA RA CY TE 5 OF CY MG NT HI TA AN B A IN C DI 16 07 08 30 30 00 EA Ac GO 71 -1 -[address] ti XI 40 8- 1- 00 00 SI ve N 59 20 20 48 DE 0. 00 17 17 67 12 1 06 PH 5 AR MG MA CY TA BL OF ET CY NT HI AN A IN C OX 13 06 07 30 3 00 CL Ac YC 10 -3 -2 .0 00 IN ti OD 70 0- 8- 00 00 IC ve ON 04 20 20 43 E- 40 17 17 54 PH AC 1 47 AR ET MA AM CY IN OP HE N 5- 32 5 BI 00 06 07 15 30 00 EA Ac SO 18 -1 -[address] ti SC 50 2- 7- 00 00 SI ve OL 77 20 20 48 DE OL 13 17 17 67 0 07 PH FU AR MA MA RA CY TE 5 OF CY MG NT HI TA AN B A IN C DI 16 06 07 30 30 00 EA Ac GO 71 -1 -[address] ti XI 40 2- 7- 00 00 SI ve N 59 20 20 48 DE 0. 00 17 17 67 12 1 06 PH 5 AR MG MA CY TA BL OF ET CY NT HI AN A IN C CL 00 06 07 30 30 00 EA Ac 53 -1 -[address] ti SI 64 2- 7- 00 00 SI ve C 06 20 20 46 DE SC 30 17 17 52 EN 1 09 PH AT AR AL MA CY TA BL OF ET CY NT HI AN A IN C FE 57 06 07 30 30 00 EA Ac RR 66 -1 -[address] ti OU 40 2- 7- 00 00 SI ve S 07 20 20 47 DE [place] 01 17 17 98 LF 0 29 PH AT AR E MA 32 CY 5 MG OF CY TA NT BL HI ET AN A IN C DI 16 05 06 30 30 00 EA Ac GO 71 -0 -[address] ti XI 40 9- 2- 00 00 SI ve N 59 20 20 48 DE 0. 00 17 17 67 12 1 06 PH 5 AR MG MA CY TA BL OF ET CY NT HI AN A IN C BI 00 05 06 15 30 00 EA Ac SO 18 -0 -[address] ti SC 50 9- 2- 00 00 SI ve OL 77 20 20 48 DE OL 13 17 17 67 0 07 PH FU AR MA MA RA CY TE 5 OF CY MG NT HI TA AN B A IN C CL 00 04 05 30 30 00 EA Ac 53 -1 -[address] ti SI 64 4- 2- 00 00 SI ve C 06 20 20 46 DE SC 30 17 17 52 EN 1 09 PH AT AR AL MA CY TA BL OF ET CY NT HI AN A IN C FE 57 03 04 30 30 00 EA Ac RR 66 -1 -[address] ti OU 40 5- 7- 00 00 SI ve S 07 20 20 47 DE [place] 01 17 17 98 LF 0 29 PH AT AR E MA 32 CY 5 MG OF CY TA NT BL HI ET AN A IN C CL 00 02 03 30 30 00 EA Ac 53 -1 -[address] ti SI 64 8- 7- 00 00 SI ve C 06 20 20 46 DE SC 30 17 17 52 EN 1 09 PH AT AR AL MA CY TA BL OF ET CY NT HI AN A IN C AM 16 02 03 30 10 00 EA Ac OX 71 -1 -[address] ti IC 40 4- 0- 00 00 SI ve IL 29 20 20 47 DE LI 90 17 17 58 N 4 18 PH 50 AR 0 MA MG CY CA OF PS CY UL NT E HI AN A IN C CL 00 12 02 30 30 00 EA Ac 53 -2 -[address] ti SI 64 9- 3- 00 00 SI ve C 06 20 20 46 DE SC 30 16 17 52 EN 1 09 PH AT AR AL MA CY TA BL OF ET CY NT HI AN A IN C BA 00 03 10 2 60 10 [...] 0- 0- 00 SI 45 S ve SC [address] ED 20 [...] BL ET CY NT HI AN A 60 11 11 00 18 5 EA 15 RI Ac 25 -0 -[address] 00 SH ti 80 5- 9- 00 SI 65 ER ve 23 20 20 0 DE 91 09 09 RI 6 PH CH AR AR MA D CY OF CY NT HI AN A 64 09 10 00 [address] Ac 67 -2 -[address] 41 EP ti 90 5- 8- 00 SI 73 HE ve 90 20 20 DE NS 60 09 09 3 PH DO AR N MA R CY OF CY NT HI AN A LI 60 04 05 [address] Ac ND 43 -2 -[address] 50 EP ti AN 20 7- 7- 00 SI 68 HE ve E 83 20 20 DE NS 1% 46 09 09 0 PH DO SH AR N AM MA R PO CY O OF CY NT HI AN A SM 49 04 04 [address] Ac 34 -1 -[address] 35 EP ti LI 80 5- 3- 00 SI 02 HE ve CE 46 20 20 DE NS 03 09 09 TR 0 PH DO EA AR N TM MA R EN CY T PE OF RM CY ET NT HR HI IN AN A 64 03 03 00 24 12 EA 11 MU Ac 37 -1 -[address] 97 LB ti 60 9- 6- 00 SI 68 ER ve 72 20 20 0 DE RY 74 09 09 0 PH BR AR IA MA N CY T OF CY NT HI AN A SM 49 03 03 00 [address] Ac 34 -2 -[address] 99 EP ti LI 80 0- 6- 00 SI 55 HE ve CE 46 20 20 DE NS 03 09 09 TR 0 PH DO EA AR N TM MA R EN CY T PE OF RM CY ET NT HR HI IN AN A 66 11 11 00 11 6 EA 10 MU Ac 99 -1 -[address] 22 LB ti 20 0- 0- 00 SI 02 ER ve 22 20 20 0 DE RY 00 08 08 4 PH BR AR IA MA N CY T OF CY NT HI AN A LO 60 08 09 00 20 20 EA 99 No Ac RA 50 -2 -[address] 20 t ti TA 50 5- 1- 00 SI 79 Av ve DI 14 20 20 DE ai NE 70 08 08 la 1 PH bl 10 AR e MA MG CY TA OF BL CY ET NT HI AN A SM 49 05 06 00 59 1 EA 98 No Ac 34 -2 -[address] 15 t ti LI 80 8- 5- 00 SI 33 Av ve CE 46 20 20 DE ai 03 08 08 la TR 0 PH bl EA AR e TM MA EN CY T PE OF RM CY ET NT HR HI IN AN A 60 02 03 00 18 5 EA 96 No Ac 25 -0 -[address] 67 t ti 80 5- 6- 00 SI 37 Av ve 23 20 20 0 DE ai 91 08 08 la 6 PH bl AR e MA CY OF CY NT HI AN A AM 00 02 03 00 21 7 EA 96 No Ac OX 78 -0 -[address] 67 t ti IC 12 5- 6- 00 SI 35 Av ve IL 02 20 20 DE ai LI 00 08 08 la N 5 PH bl 25 AR e 0 MA MG CY CA OF PS CY UL NT E HI AN A 49 02 03 00 28 7 EA 96 No Ac 88 -1 -[address] 76 t ti 40 1- 6- 00 SI 32 Av ve 46 20 20 DE ai 70 08 08 la 1 PH bl AR e MA CY OF CY NT HI AN A NA 00 02 03 00 17 17 EA 96 No Ac SO 08 -1 -[address] 76 t ti NE 51 1- 6- 00 SI 31 Av ve X 28 20 20 DE ai 50 80 08 08 la 1 PH bl MC AR e G MA NA CY SA L OF SP CY RA NT Y HI AN A Immunization Name Date Rout CVX Reac Dose Comm Prov Is Faci e tion ent ider Refu lity Give sed n BARB 06-2 21 ONEL No ONEL VACC 8-20 SAUL SAUL INE 11 CO CO LIVE HEAL HEAL FOR TH TH CENT CENT SUBC ER ER UTAN EOUS USE MPSV 04-2 32 ONEL No DHS/ 4 7-20 SAUL CO VACC 09 CO HEAL INE HEAL TH GROU TH CENT PS CENT RAL ACYW ER BANK -135 ACCT SUBQ USE Procedures Procedure DOS Code Location Performer Comment BASIC [address] METABOLIC 7 [facility] PANEL CALCIUM HEALTHCAR HEALTHCAR TOTAL E EDGE E EDGE CATHETER C1759 ST ST INTRACARD 7 [facility] IAC ECHOCARDI HEALTHCAR HEALTHCAR OGRAPHY E EDGE E EDGE ANES 86534 ANESTHESI ESTEFANIA CARDIAC 7 A GROUP ELECTROPH PRACTICE YSIOL STDY W/[place] [address] THYROID 7 [facility] STIMULATI NG HEALTHCAR HEALTHCAR HORMONE E EDGE E EDGE TSH CATHETER C18[address] ST GUIDING 7 [facility] HEALTHCAR HEALTHCAR E EDGE E EDGE INTRDUCR/ C1893 ST ST SHEATH 7 [facility] INTRCARD EP CURVE HEALTHCAR HEALTHCAR NOT E EDGE E EDGE PEEL-AWAY CATH EP C17[address] [facility] ST DX/ABLAT 7 [facility] NOT 3D/VECTOR HEALTHCAR HEALTHCAR MAP NOT E EDGE E EDGE COOL-TIP URINE [address] 7 RADHA RADHA TEST VISUAL HEALTHCAR HEALTHCAR COLOR E EDGE E EDGE CMPRSN METHS INTRACARD [address]451 ST JESUS IAC 7 RADHA ELECTROPH YSIOLOGIC PHYSICIAN 3D S MAPPING COMPRE [address] ST [facility] ELECTROPH 7 RADHA YSIOL XM W/LEFT PHYSICIAN ATRIAL S PACNG/REC INJECTION J2405 ST ST 7 RADHA RADHA ONDANSETR ON HCL HEALTHCAR HEALTHCAR PER 1 MG E EDGE E EDGE INJECTION J3010 ST ST FENTANYL 7 RADHA RADHA CITRATE 0.1 MG HEALTHCAR HEALTHCAR E EDGE E EDGE UNCLASSIF J3490 ST ST IED DRUGS 7 RADHA RADHA HEALTHCAR HEALTHCAR E EDGE E EDGE BLOOD [address] COUNT 7 RADHA RADHA COMPLETE AUTO&AUTO HEALTHCAR HEALTHCAR DIFRNTL E EDGE E EDGE WBC EPHYS 30214 ST [facility] EVAL 7 RAD[facility] W/ABLATIO N PHYSICIAN SUPRAVENT S ARRHYTHMI A INTRACARD [address]01 ST [facility] ECHOCARD 7 RADHA W/THER/DX PHYSICIAN IVNTJ S INCL IMG S&I CATH C1730 ST ST ELECTROPH 7 RADHA RADHA YSIOLOGY DX OT HEALTHCAR HEALTHCAR THAN 3D E EDGE E EDGE MAP 19/< LEVONORGE J7298 [facility] ALEX STREL-RLS 7 PHYSICIAN S GROUP INTRAUTER INE JOHANNA SYS 52 MG URINE 55017 [facility] ALEX 7 PHYSICIAN TEST S GROUP VISUAL COLOR CMPRSN METHS INSERTION 15457 [facility] ALEX 7 PHYSICIAN INTRAUTER S GROUP INE DEVICE IUD ECG [address]21 [facility] ROUTINE 7 RADHA ECG W/LEAST PHYSICIAN 12 LDS S W/I&R CYTP C/V 83194 [facility], PICKLESIM AUTO THIN 7 LLC ER JR LYR PREPJ SCR MNL RESCR PHYS POSTPARTU 62205 [facility] ALEX M CARE 7 PHYSICIAN ONLY S GROUP SEPARATE PROCEDURE 38829 [facility] JOHNSON DELIVERY 7 PHYSICIAN ONLY S GROUP ANESTHESI 81454 COMMUNITY FEEBACK A 7 ANESTH OF THE DELIVERY BLUE ONLY PARTICLE 89932 RONIT COTTRELL AGGLUTINA 7 [facility] TION INC INC SCREEN EACH ANTIBODY 84227 [facility] HARPEL NONSTRESS 7 PHYSICIAN TEST S GROUP URNLS DIP 66159 RONIT COTTRELL 7 [facility] STICK/TAB INC INC LET REAGENT AUTO MICROSCOP Y ECG 97582 [facility] ZOFIA ROUTINE 7 PHYSICIAN ECG S GROUP W/LEAST 12 LDS I&R ONLY ECG 99080 RONIT COTTRELL ROUTINE 7 [facility] ECG INC INC W/LEAST 12 LDS TRCG ONLY W/O I&R ECHO 75296 RONIT COTTRELL TTHRC R-T 7 [facility] 2D INC INC W/WOM-MOD E COMPL SPEC&COLR D ECG 74728 [facility] ZOFIA ROUTINE 7 PHYSICIAN ECG S GROUP W/LEAST 12 LDS I&R ONLY ECG 37638 RONIT COTTRELL ROUTINE 7 [facility] ECG INC INC W/LEAST 12 LDS TRCG ONLY W/O I&R ECG 37686 REGGIE CASTANO ROUTINE 7 PHYSICIAN ECG S, PLLC W/LEAST 12 LDS I&R ONLY XTRNL ECG 03254 RONIT COTTRELL & 48 HR 7 [facility] RECORDING INC INC EXTERNAL 24284 RONIT COTTRELL ECG 7 [facility] SCANNING [place] [address] RONIT COTTRELL THYROXINE 7 [facility] TOTAL INC INC XTRNL ECG 36833 RONIT MILLER JR 7 [facility] S RHYTHM P W/I&R UP TO 48 HRS COMPREHEN 53257 RONIT COTTRELL SIVE 7 [facility] [place] [address] RONIT COTTRELL THYROID 7 [facility] STIMULATI INC INC NG HORMONE TSH GLUCOSE 42527 [facility] POST 7 PHYSICIAN PHYSICIAN GLUCOSE S GROUP S GROUP DOSE 84903 RONIT COTTRELL NONSTRESS 7 [facility] TEST INC INC SUSCEPTIB 91149 RONIT COTTRELL LTY STDY 7 [facility] ANTIMICRB INC INC IAL MICRO/AGA R DILUTJ URNLS DIP 28321 RONIT COTTRELL 7 [facility] STICK/TAB INC INC LET REAGENT AUTO MICROSCOP Y 35422 [facility] HARPEL NONSTRESS 7 PHYSICIAN TEST S GROUP US PREG 33158 RONIT COTTRELL UTERUS 7 [facility] W/DETAIL INC INC APOLLO 1ST GESTATION US PREG 72811 MEGG[facility] UTERUS 7 MEDICAL AFTER 1ST IMAGING TRIMEST ASS GESTATION CULTURE 58112 [facility] INC INC QUANTTATI VE COLONY COUNT URINE URINE 44689 [facility] TEST INC INC VISUAL COLOR CMPRSN METHS URNLS DIP 48787 [facility] STICK/TAB INC INC LET REAGENT AUTO MICROSCOP Y US PREG 31412 [facility] UTERUS 6 [facility] REAL TIME INC INC W/IMAGE DCMTN TRANSVAG URNLS DIP 96198 [facility] STICK/TAB INC INC LET REAGENT AUTO MICROSCOP Y CULTURE 60189 [facility] BACTERIAL 6 [facility] INC QUANTTATI VE COLONY COUNT URINE URINE 92705 [facility] 6 PHYSICIAN JAQUI TEST S GROUP VISUAL COLOR CMPRSN METHS DRUG TST G0477 [facility] PRESUMP;C 6 PHYSICIAN JAQUI PBL BEING S GROUP READ DC OPT OBV ONLY FRAMES V2020 ELPIDIO IGLESIAS PURCHASES 6 SCRATCH V2760 ELPIDIO IGLESIAS RESISTANT 6 COATING PER LENS LENS V2784 ELPIDIO MAGALLANES [facility] POLYCARBO 6 ERVIN OR EQUAL ANY INDEX PER LENS SPHERE V2100 ELPIDIO MAGALLANES [place] SINGLE 6 VISION PLANO +/- 4.00 PER LENS FITTING 05456 MAGALLANES [facility] MAGALLANES [facility] SPECTACLE 6 S XCPT APHAKIA MONOFOCAL OPHTH 24955 [facility]ICAL 6 XM&EVAL COMPRHNSV ESTAB PT 1/> URINE 89043 [facility] ALEX 6 PHYSICIAN JAQUI TEST S GROUP VISUAL COLOR CMPRSN METHS INFECTIOU 82374 Scot Ashlie CATRACHO TOD S AGENT 5 YAMILET WARE DNA/RNA PSC INFLUENZA 1ST 2 TYPES OPHTH 85849 [facility] 5 ANG ANG XM&EVAL COMPRHNSV ESTAB PT 1/> REMOVAL 05791 [facility] INTRAUTER 5 PHYSICIAN [place] [address] [facility] IRON 5 [place] [address] [facility] THYROID 5 DIAGNOSTI DIAGNOSTI STIMULATI CS CS NG HORMONE TSH BASIC 21600 [facility] METABOLIC 5 DIAGNOSTI DIAGNOSTI PANEL CS CS CALCIUM TOTAL IRON 41289 [facility] BINDING 5 DIAGNOSTI DIAGNOSTI CAPACITY CS CS URINE 74946 [facility] 4 PHYSICIAN JAQUI TEST S GROUP VISUAL COLOR CMPRSN METHS INSERTION 51143 [facility] 4 PHYSICIAN JAQUI INTRAUTER S GROUP INE DEVICE IUD LEVONORGE J7302 [facility] ALEX STREL-RLS 4 PHYSICIAN JAQUI E S GROUP INTRAUTER N CNTRACPT 52 MG LOW 741 [facility]OTT[facility] CERVICAL 4 [facility] INC SECTION 54807 [facility] SCHULSTAD DELIVERY 4 PHYSICIAN CAM ONLY S GROUP 19989 [facility] ALEX DELIVERY 4 PHYSICIAN JAQUI ONLY S GROUP W/POSTPAR ANTONELLA CARE ANESTHESI 93574 [facility] 4 ANESTH SHE OF THE DELIVERY BLUE ONLY DOPPLER 12787 [facility] ALEX VELOCIMET 4 PHYSICIAN [place] [address] [facility] 4 PHYSICIAN JAQUI UTERUS S GROUP LIMITED 1/> FETUSES 33149 [facility] BIOPHYSIC 4 PHYSICIAN JAQUI AL S GROUP PROFILE W/O NON-STRES S TESTING 06250 KAITLIN CROW NONSTRESS 4 MIGNON WARE FORTINO TEST DOPPLER 72544 [facility] VELOCIMET 4 PHYSICIAN JAQUI RY S GROUP UMBILICAL ARTERY 01046 [facility] BIOPHYSIC 4 PHYSICIAN JAQUI AL S GROUP PROFILE W/O NON-STRES S TESTING US PREG 95746 [facility] UTERUS 4 PHYSICIAN JAQUI REAL TIME S GROUP F/U TRNSABDL PER FETUS 05722 [facility] NONSTRESS 4 [facility] TEST INC INC URNLS DIP 82809 [facility] R[facility]IT 4 [facility] STICK/TAB INC INC LET REAGENT AUTO MICROSCOP Y DOPPLER 02820 [facility] VELOCIMET 4 JAQUI JAQUI RY UMBILICAL ARTERY US PREG 12332 [facility] UTERUS 4 JAQUI JAQUI REAL TIME F/U TRNSABDL PER FETUS 14296 [facility] BIOPHYSIC 4 JAQUI JAQUI AL PROFILE W/O NON-STRES S TESTING CUL BACT 24066 COMBINED COMBINED XCPT 4 PHYSICIAN PHYSICIAN URINE S LA S LA BLOOD/STO OL AEROBIC ISOL US PREG 41522 KAITLIN CROW UTERUS 4 MIGNON WARE FORTINO AFTER 1ST TRIMEST GESTATION 09337 KAITLIN CROW NONSTRESS 4 MIGNON WARE FORTINO TEST URNLS DIP 89388 [facility]LL [facility] STICK/TAB INC [place] [address] [facility]OTT[facility] INFUSION 4 [facility] HYDRATION INC INC INITIAL 31 MIN-1 HOUR GLUCOSE 71719 [facility] TOLERANCE 4 [facility] EA ADDL INC INC BEYOND 3 SPECIMENS URNLS DIP 80818 [facility] STICK/TAB INC INC LET RGNT NON-AUTO W/O MICRSCP GLUCOSE 62650 [facility] [place] TOLERANCE 4 [facility] TEST GTT INC INC 3 SPECIMENS GLUCOSE 96031 [facility] POST 4 JAQUI JAQUI GLUCOSE DOSE IAADIADOO 72775 FIELD AMB FIELD AMB 4 STREPTOCO CCUS GROUP A URNLS DIP 65588 [facility] RONIT 4 [facility] STICK/TAB INC INC LET REAGENT AUTO MICROSCOP Y 51506 [facility]OTT[facility] NONSTRESS 4 [facility] TEST INC INC US PREG 04246 [facility] UTERUS 4 JAQUI JAQUI AFTER 1ST TRIMEST / GESTATION CULTURE 63121 [facility] BACTERIAL 4 [facility] INC INC [place] [address] [facility]OTT[facility] STREPTOCO 4 [facility] CCUS INC INC GROUP A CUL BACT 42679 [facility]OTT[facility] XCPT 4 [facility] URINE INC INC BLOOD/STO OL AEROBIC ISOL URNLS DIP 75756 [facility] RONIT 4 [facility] STICK/TAB INC INC LET REAGENT AUTO MICROSCOP Y US PREG 29150 [facility] ALEX UTERUS 4 JAQUI JAQUI REAL TIME W/IMAGE DCMTN TRANSVAG ANTIBODY 78568 COMBINED COMBINED CHLAMYDIA 4 PHYSICIAN PHYSICIAN S LA S LA URINE 58636 ALEX [facility] 4 JAQUI JAQUI TEST VISUAL COLOR CMPRSN METHS CUL BACT 17764 COMBINED COMBINED XCPT 4 PHYSICIAN PHYSICIAN URINE S LA S LA BLOOD/STO OL AEROBIC ISOL URINE 37993 [facility] DEPT VISUAL DARRYN DARRYN COLOR CMPRSN METHS IAADIADOO 91102 KILPELA KILPELA 4 JEA JEA INFLUENZA URNLS DIP 27437 [facility] 4 PHYSICIAN PHYSICIAN STICK/TAB S GROUP S GROUP LET RGNT NON-AUTO W/O MICRSCP URINE 24975 [facility] 4 PHYSICIAN PHYSICIAN TEST S GROUP S GROUP VISUAL COLOR CMPRSN METHS NONINVASI 26796 FIELD AMB FIELD AMB VE 4 EAR/PULSE OXIMETRY SINGLE DETER IAADIADOO 56307 KILPELA KILPELA 3 JEA JEA INFLUENZA IAADIADOO 09889 KORTNEY CHERRIE KORTNEY CHERRIE 3 STREPTOCO CCUS GROUP A OPHTH 93868 MAGALLANESELVIA MAGALLANES [facility] MEDICAL 3 XM&EVAL COMPRHNSV ESTAB PT 1/> FITTING 20298 MAGALLANESELVIA IGLESIAS SPECTACLE 3 S XCPT APHAKIA MONOFOCAL SPHERE V2100 MAGALLANESELVIA IGLESIAS SINGLE 3 VISION PLANO +/- 4.00 PER LENS DETERMINA 39253 MAGALLANESELVIA MAGALLANES [facility] TION 3 REFRACTIV E STATE FRAMES V2020 MAGALLANESELVIA MAGALLANES [facility] PURCHASES 3 IAADIADOO 10617 FIELD AMB FIELD AMB 3 STREPTOCO CCUS GROUP A IAADIADOO 47203 A C YAMILET A 3 YAMILET WARE STREPTOCO PSC CCUS GROUP A COLLECTIO 95750 A C YAMILET A N VENOUS 3 YAMILET WARE BLOOD PSC VENIPUNCT URE BLOOD 42845 A C YAMILET A COUNT 3 YAMILET WARE COMPLETE PSC AUTO&AUTO DIFRNTL WBC SUSCEPTIB 38977 [facility] LTY STDY 3 [facility] ANTIMICRB INC INC IAL MICRO/AGA R DILUTJ CULTURE 45943 [facility] BACTERIAL 3 [facility] INC INC QUANTTATI VE COLONY COUNT URINE CULTURE 30455 [facility] BCT 3 [facility] ISOL&PRSM INC INC PTV ID ISOLATE EA URINE URINE 88409 [facility]OTT[facility] 3 [facility] TEST INC INC VISUAL COLOR CMPRSN METHS URNLS DIP 42077 [facility]OTT[facility]LL 3 [facility] STICK/TAB INC INC LET REAGENT AUTO MICROSCOP Y URNLS DIP 17490 [facility] COTTRELL 3 [facility] STICK/TAB INC INC LET REAGENT AUTO MICROSCOP Y URINE 41176 [facility]OTT[facility]LL 3 [facility] TEST INC INC VISUAL COLOR CMPRSN METHS IAADIADOO 15469 CATRACHO TOD CATRACHO TOD 3 INFLUENZA IAADIADOO 31791 KILPELA KILPELA 3 JEA JEA STREPTOCO CCUS GROUP A IAADIADOO 45803 KILPELA KILPELA 3 JEA JEA INFLUENZA IAADIADOO 00627 CATRACHO ADANES TOD 2 STREPTOCO CCUS GROUP A OPHTH 59025 SCIFRES SCIFRES MEDICAL 2 ANG ANG XM&EVAL COMPRHNSV ESTAB PT 1/> FITTING 16937 SCIFRES SCIFRES SPECTACLE 2 ANG ANG S XCPT APHAKIA MONOFOCAL DETERMINA 59353 SCIFRES SCIFRES TION 2 ANG ANG REFRACTIV E STATE SPHERE V2100 SCIFRES SCIFRES SINGLE 2 ANG ANG VISION PLANO +/- 4.00 PER LENS FRAMES V2020 SCIFRES SCIFRES PURCHASES 2 ANG ANG IAADIADOO 63779 CATRACHO TOD CATRACHO TOD 2 STREPTOCO CCUS GROUP A CUL BACT 34679 QUEST QUEST XCPT 2 DIAGNOSTI DIAGNOSTI URINE CS CS BLOOD/STO OL AEROBIC ISOL IAADIADOO 49637 CATRACHO [facility] TOD 2 STREPTOCO CCUS GROUP A IAADIADOO 26001 CATRACHO [facility] 2 INFLUENZA IAADIADOO 58448 DENNIS DENNIS 2 SHA SHA STREPTOCO CCUS GROUP A CONTRACEP S4993 [facility] COTTRELL TIVE 2 [facility] S4993 RONIT COTTRE[facility] TIVE 1 [facility] S4993 RONIT COTTRELL TIVE 1 [facility] A4267 RONIT COTTRELL TIVE 1 [facility] CONDOM MALE EACH SPHERE V2100 JOANA SCIFRES SINGLE 1 VISION ANG VISION PLANO +/- 4.00 PER LENS FITTING 16140 JOANA SCIFRES SPECTACLE 1 VISION ANG S XCPT APHAKIA MONOFOCAL OPHTH 70672 JOANA SCIFRES MEDICAL 1 VISION ANG XM&EVAL COMPRHNSV ESTAB PT 1/> FRAMES V2020 JOANA SCIFRES PURCHASES 1 VISION ANG CONTRACEP S4993 [facility] COTTRELL TIVE 1 [facility] CONTROL BARB 25756 R[facility] COTTRELL VACCINE 1 [facility] SUBCUTANE OUS USE IM ADM 85398 RONIT COTTRELL PRQ ID 1 [facility] SUB[facility] NJXS 1 VACCINE IADNA 31018 Scot HIGGINBOTHAM STREPTOCO 1 YAMILET DIAS CCUS PSC GROUP A QUANTIFIC ATION TISS ALMA ROSA 78360 ADVANCED ATKINS SLIDE 1 DERMATOLO TRA SAMPS GY SKN/HR/NL S FNGI/ECTO PARASIT BLOOD 17310 A C A C COUNT 0 YAMILET WOODARD MD COMPLETE PSC PSC AUTO&AUTO DIFRNTL WBC FRAMES V2020 JOANA MAGALLANES, PURCHASES 0 VISION GRACE A OPHTH 19715 JOANA MAGALLANES, MEDICAL 0 VISION GRACE A XM&EVAL COMPRHNSV ESTAB PT 1/> FITTING 89015 JOANA MAGALLANES, SPECTACLE 0 VISION GRACE A S XCPT APHAKIA MONOFOCAL SPHERE V2100 JOANA MAGALLANES, SINGLE 0 VISION GRACE A VISION PLANO +/- 4.00 PER LENS IADNA 27367 Scot HIGGINBOTHAM, STREPTOCO 9 YAMILET HAZEL CCUS PSC GROUP A QUANTIFIC ATION IAADIADOO 03179 Scot HIGGINBOTHAM, 9 YAMILET HAZEL INFLUENZA PSC IM ADM 35082 [facility] PRQ ID 9 [facility] NJXS 1 BANK ACCT VACCINE IM ADM 51354 [facility] R[facility] PRQ ID 9 [facility] SUBQ/IM [facility] NJXS 1 BANK ACCT VACCINE MPSV4 69805 [facility] RONIT VACCINE 9 [facility] GROUPS [facility] [id number] BANK ACCT SUBQ USE FITTING 65797 JOANA ANJALI, SPECTACLE 9 VISION MICHAELA M S XCPT APHAKIA MONOFOCAL SPHERE V2100 JOANA ALBA, SINGLE 9 VISION MICHAELA Freire VISION PLANO +/- 4.00 PER LENS OPHTH 78845 JOANA ALBA, MEDICAL 9 VISION MICHAELA Freire XM&EVAL COMPRHNSV ESTAB PT 1/> FRAMES V2020 JOANA ALBA, PURCHASES 9 ABRAHAM Freire IAADIADOO 71642 FAMILY TAMMYBERRY, 8 CARE JESSICA T STREPTOCO ASSOCIATE CCUS S GROUP A BLOOD 44968 FAMILY TAMMYBERRY, COUNT 8 CARE JESSICA Estes COMPLETE ASSOCIATE AUTO&AUTO S DIFRNTL WBC Encounters Encounter Start End Date Code Location Performer Type Date HOSPITAL [facility] 7 7 [facility] OFFICE 85202 [facility] 7 7 [facility] MINUTES PHYSICIAN S HOSP[facility]IT - 7 7 [facility] INPATIENT INC OFFICE 16652 [facility] OUTPATIEN 7 7 PHYSICIAN T VISIT S GROUP 15 MINUTES OFFICE 93492 [facility] OUTPATIEN 7 7 PHYSICIAN T VISIT S GROUP 15 MINUTES OFFICE 88223 [facility] OUTPATIEN 7 7 PHYSICIAN T VISIT S GROUP 15 MINUTES OFFICE 03064 [facility] OUTPATIEN 7 7 PHYSICIAN T VISIT S GROUP 15 MINUTES HOSPITAL RONIT - 7 7 [facility] OUTPATIEN [facility] T OFFICE 62123 [facility] OUTPATIEN 7 7 PHYSICIAN T VISIT S GROUP 15 MINUTES HOSPITAL RONIT - 7 7 [facility] OUTPATIEN INC T OFFICE 86110 [facility] OUTPATIEN 7 7 PHYSICIAN T VISIT S GROUP 15 MINUTES HOSPITAL RONIT - 7 7 [facility] OUTPATIEN INC T OFFICE 06133 [facility] ZOFIA OUTPATIEN 7 7 PHYSICIAN T VISIT S GROUP 25 MINUTES HOSPITAL RONIT - 7 7 [facility] OUTPATIEN INC T OFFICE 55613 [facility] OUTPATIEN 7 7 PHYSICIAN T VISIT S GROUP 15 MINUTES HOSPITAL RONIT - 7 7 [facility] OUTPATIEN INC T OFFICE 10850 [facility] ZOFIA OUTPATIEN 7 7 PHYSICIAN T NEW 60 S GROUP MINUTES EMERGENCY 76837 RONIT 7 7 [facility] DEPARTMEN INC T VISIT MODERATE SEVERITY EMERGENCY 21800 REGGIE CASTANO DEPT 7 7 PHYSICIAN VISIT S, PLLC HIGH SEVERITY& THREAT [facility] RONIT - 7 7 [facility] OUTPATIEN INC T OFFICE 21996 [facility] A[facility] OUTPATIEN 7 7 PHYSICIAN T VISIT S GROUP 15 MINUTES OFFICE 46218 [facility] OUTPATIEN 7 7 PHYSICIAN T VISIT S GROUP 15 MINUTES OFFICE 71875 [facility] OUTPATIEN 7 7 PHYSICIAN T VISIT S GROUP 15 MINUTES HOSPITAL RONIT - 7 7 [facility] OUTPATIEN INC T OFFICE 05430 [facility] J[facility] OUTPATIEN 7 7 PHYSICIAN T VISIT S GROUP 15 MINUTES HOSPITAL RONIT - 7 7 [facility] OUTPATIEN INC T OFFICE 47466 [facility] OUTPATIEN 7 7 PHYSICIAN T VISIT S GROUP 15 MINUTES EMERGENCY 04556 REGGIE KHANNA 7 7 PHYSICIAN JR DEPARTMEN S, [facility] T VISIT HIGH/URGE NT SEVERITY EMERGENCY 00910 RONIT 7 7 [facility] DEPARTMEN INC T VISIT LOW/MODER SEVERITY HOSPITAL RONIT - 7 7 [facility] OUTPATIEN INC T OFFICE 86221 [facility] OUTPATIEN 7 7 PHYSICIAN T VISIT S GROUP 15 MINUTES OFFICE 46675 [facility] OUTPATIEN 6 6 PHYSICIAN T VISIT S GROUP 15 MINUTES HOSPITAL RONIT - 6 6 [facility] OUTPATIEN INC T EMERGENCY 58168 REGGIE OMAIRA 6 6 PHYSICIAN ARISTEO DEPARTMEN S, PLLC T VISIT HIGH/URGE NT SEVERITY HOSPITAL RONIT - 6 6 [facility] OUTPATIEN INC T EMERGENCY 38821 RONIT 6 6 [facility] DEPARTMEN INC T VISIT LIMITED/M INOR PROB OFFICE 71817 [facility] OUTPATIEN 6 6 PHYSICIAN JAQUI T VISIT S GROUP 25 MINUTES OFFICE 45726 [facility] OUTPATIEN 6 6 PHYSICIAN JAQUI T VISIT S GROUP 15 MINUTES OFFICE 83426 [facility] ANTHONY OUTPATIEN 6 6 PHYSICIAN ARISTEO T VISIT S GROUP 15 MINUTES OFFICE 55233 [facility] A[facility] OUTPATIEN 6 6 PHYSICIAN JAQUI T VISIT 5 S GROUP MINUTES OFFICE 19170 A Ashlie WOODARD OUTPATIEN 5 5 YAMILET WARE ZHANE T VISIT PSC 15 MINUTES OFFICE 96955 [facility] OUTPATIEN 5 5 PHYSICIAN JAQUI T VISIT 5 S GROUP MINUTES OFFICE 30875 A Ashlie BARON OUTPATIEN 5 5 YAMILET WARE T VISIT PSC 15 MINUTES OFFICE 98838 A Ashlie WOODARD A OUTPATIEN 5 5 YAMILET WARE T VISIT PSC 15 MINUTES OFFICE 07376 A Ashlie WRAY OUTPATIEN 5 5 YAMILET WARE JEScot T VISIT PSC 15 MINUTES OFFICE 86199 A Ashlie WRAY OUTPATIEN 5 5 YAMILET WARE JEScot T VISIT PSC 15 MINUTES OFFICE 72522 RONIT SWAN OUTPATIEN 5 5 [facility]OSP[facility] 15 MINUTES OFFICE 37748 [facility] OUTPATIEN 4 4 PHYSICIAN JAQUI T VISIT S GROUP 15 MINUTES HOSPITAL RONIT - 4 4 [facility] INPATIENT INC [facility]OSPITAL RONIT - 4 4 [facility] OUTPATIEN INC T OFFICE 42006 ALEX MARTINEZE OUTPATIEN 4 4 JAQUI JAQUI T VISIT 15 MINUTES OFFICE 62367 [facility] OUTPATIEN 4 4 JAQUI JAQUI T VISIT 15 MINUTES OFFICE 03232 A C FIELD AMB OUTPATIEN 4 4 YAMILET WARE T VISIT PSC 15 MINUTES OFFICE 39309 KAITLIN CROW OUTPATIEN 4 4 MIGNON FREITAS T VISIT 15 MINUTES HOSPITAL RONIT - 4 4 [facility] OUTPATIEN INC T OFFICE 62701 ALEX MARTINEZE OUTPATIEN 4 4 JAQUI JAQUI T VISIT 15 MINUTES OFFICE 45465 A Ashlie WRAY OUTPATIEN 4 4 YAMILET WARE JEScot T VISIT PSC 15 MINUTES OFFICE 45602 ALEX [facility] OUTPATIEN 4 4 JAQUI JAQUI T VISIT 15 MINUTES OFFICE 54938 ALEX MARTINEZE OUTPATIEN 4 4 JAQUI JAQUI T VISIT 15 MINUTES OFFICE 93575 [facility] OUTPATIEN 4 4 JAQUI JAQUI T VISIT 15 MINUTES HOSPITAL RONIT - 4 4 [facility] OUTPATIEN INC T OFFICE 67252 [facility] OUTPATIEN 4 4 JAQUI JAQUI T VISIT 5 MINUTES OFFICE 30024 FIELD AMB FIELD AMB OUTPATIEN 4 4 T VISIT 15 MINUTES OFFICE 14971 [facility] OUTPATIEN 4 4 JAQUI JAQUI T VISIT 15 MINUTES HOSPITAL RONIT - 4 4 [facility] OUTPATIEN INC T OFFICE 15750 ALEX MARTINEZE OUTPATIEN 4 4 JAQUI JAQUI T VISIT 15 MINUTES OFFICE 74474 [facility] OUTPATIEN 4 4 JAQUI JAQUI T VISIT 15 MINUTES OFFICE 26308 FIELD AMB FIELD AMB OUTPATIEN 4 4 T VISIT 15 MINUTES OFFICE 58646 [facility] OUTPATIEN 4 4 JAQUI JAQUI T VISIT 15 MINUTES OFFICE 69058 FIELD AMB FIELD AMB OUTPATIEN 4 4 T VISIT 15 MINUTES EMERGENCY 44496 RONIT 4 4 [facility] DEPARTMEN INC T VISIT MODERATE SEVERITY EMERGENCY 15925 [facility] 4 4 DEPARTMEN T VISIT HIGH/URGE NT SEVERITY HOSPITAL RONIT - 4 4 [facility] OUTPATIEN INC T OFFICE 54737 FIELD AMB FIELD AMB OUTPATIEN 4 4 T VISIT 15 MINUTES OFFICE 32622 ALEX MARTINEZE OUTPATIEN 4 4 JAQUI JAQUI T VISIT 15 MINUTES OFFICE 72986 KILPELA KILPELA OUTPATIEN 4 4 JEA JEA T VISIT 15 MINUTES OFFICE 35592 ALEX MARTINEZE OUTPATIEN 4 4 JAQUI JAQUI T NEW 45 MINUTES OFFICE 92843 [facility] DEPT [facility] DEPT 10 DARRYN DARRYN MINUTES OFFICE 50435 KILPELA KILPELA OUTPATIEN 4 4 JEA JEA T VISIT 15 MINUTES OFFICE 93532 [facility] OUT[facility] 4 4 PHYSICIAN T VISIT S GROUP 10 MINUTES OFFICE 45650 [facility] OUT[facility] 4 4 PHYSICIAN T VISIT S GROUP 15 MINUTES OFFICE 39729 FIELD AMB FIELD AMB OUTPATIEN 4 4 T VISIT 15 MINUTES OFFICE 21217 KILPELA KILPELA OUTPATIEN 3 3 JEScot JEA T VISIT 15 MINUTES OFFICE 12061 KORTNEY CHERRIE KORTNEY CHERRIE OUTPATIEN 3 3 T VISIT 15 MINUTES OFFICE 46888 FIELD AMB FIELD AMB OUTPATIEN 3 3 T VISIT 15 MINUTES OFFICE 21433 A Ashlie HAYDEN TOD OUTPATIEN 3 3 YAMILET WARE T VISIT PSC 10 MINUTES OFFICE 56384 A Ashlie WRAY OUTPATIEN 3 3 YAMILET WARE JEA T VISIT PSC 15 MINUTES OFFICE 97174 A Ashlie WOODARD A OUTPATIEN 3 3 YAMILET WARE T VISIT PSC 15 MINUTES OFFICE 99162 A Ashlie WOODARD A OUTPATIEN 3 3 YAMILET WARE T VISIT PSC 15 MINUTES HOSPITAL RONIT - 3 3 [facility] OUTPATIEN INC T EMERGENCY 92171 TE DOCKERY 3 3 EMERGENCY [facility] T VISIT HIGH/URGE NT SEVERITY EMERGENCY 52487 RONIT 3 3 [facility] DEPARTMEN INC T VISIT LOW/MODER SEVERITY HOSPITAL RONIT - 3 3 [facility] OUTPATIEN INC T EMERGENCY 74317 RONIT 3 3 [facility] DEPARTMEN INC T VISIT LOW/MODER SEVERITY EMERGENCY 31542 OMAIRA CASTANO [address] [facility] DEPARTMEN T VISIT HIGH/URGE NT SEVERITY OFFICE 24151 CATRACHO TOD CATRACHO TOD OUTPATIEN 3 3 T VISIT 15 MINUTES OFFICE 06750 CATRACHO TOD CATRACHO TOD OUTPATIEN 3 3 T VISIT 15 MINUTES OFFICE 80493 CATRACHO TOD CATRACHO TOD OUTPATIEN 3 3 T VISIT 15 MINUTES OFFICE 02699 KILPELA KILPELA OUTPATIEN 3 3 JEScot JEA T VISIT 15 MINUTES OFFICE 19039 CATRACHO RYAN TOD OUTPATIEN 3 3 T VISIT 15 MINUTES OFFICE 13924 KILPESKYLER KILPELA OUTPATIEN 2 2 JEScot JEA T VISIT 15 MINUTES OFFICE 47815 CATRACHO RYAN TOD OUTPATIEN 2 2 T VISIT 15 MINUTES OFFICE 23222 CATRACHO RYAN TOD OUTPATIEN 2 2 T VISIT 15 MINUTES OFFICE 65937 CATRACHO RYAN TOD OUTPATIEN 2 2 T VISIT 15 MINUTES OFFICE 89761 CATRACHO RYAN TOD OUTPATIEN 2 2 T VISIT 15 MINUTES OFFICE 42383 CATRACHO RYAN OTD OUTPATIEN 2 2 T VISIT 15 MINUTES OFFICE 15500 CATRACHO RYAN TOD OUTPATIEN 2 2 T VISIT 15 MINUTES OFFICE 14919 CATRACHO RYAN TOD OUTPATIEN 2 2 T VISIT 15 MINUTES OFFICE 74340 [facility] OUTPATIEN 2 2 SHA SHA T VISIT 15 MINUTES OFFICE 47520 CATRACHO RYAN TOD OUTPATIEN 2 2 T VISIT 15 MINUTES OFFICE 97585 [facility] OUTPATIEN 2 2 [facility] 10 MINUTES OFFICE 41837 CATRACHO RYAN TOD OUTPATIEN 2 2 T VISIT 15 MINUTES OFFICE 49508 CATRACHO RYAN TOD OUTPATIEN 2 2 T VISIT 15 MINUTES OFFICE 62240 RONIT RONIT OUTPATIEN 1 1 [facility] 10 MINUTES OFFICE 82357 [facility]O RYAN TOD OUTPATIEN 1 1 T VISIT 15 MINUTES OFFICE 41762 Scot Dailey CATRACHO TOD OUTPATIEN 1 1 YAMILET WARE T VISIT PSC 15 MINUTES PERIODIC 79008 RONIT COTTRELL PREVENTIV 1 1 [facility] PATIENT 17YRS OFFICE 82979 ADVANCED ATKINS OUTPATIEN 1 1 DERMATOLO TRA T VISIT GY 15 MINUTES OFFICE 41794 A C NEFTALY OUTPATIEN 1 1 YAMILET WARE LARISSA T VISIT PSC 15 MINUTES OFFICE 49834 A C NEFTALY OUTPATIEN 1 1 YAMILET WARE LARISSA T VISIT PSC 15 MINUTES OFFICE 91120 RONIT COTTRELL OUTPATIEN 1 1 [facility] 10 MINUTES OFFICE 31540 A C NEFTALY OUTPATIEN 1 1 YAMILET WARE LARISSA T VISIT PSC 15 MINUTES OFFICE 80875 RONIT COTTRELL OUTPATIEN 1 1 [facility] 10 MINUTES OFFICE 11050 [facility] ATKINS CONSULTAT 1 1 DERMATOLO TRA ION GY NEW/ESTAB PATIENT 40 MIN OFFICE 82296 A C NEFTALY OUTPATIEN 1 1 YAMILET WARE LARISSA T VISIT PSC 15 MINUTES OFFICE 54777 A C NEFTALY OUTPATIEN 1 1 YAMILET WARE LARISSA T VISIT PSC 15 MINUTES OFFICE 03999 RONIT COTTRELL OUTPATIEN 1 1 [facility] 10 MINUTES OFFICE 83041 A C NEFTALY OUTPATIEN 1 1 YAMILET WARE LARISSA T VISIT PSC 15 MINUTES OFFICE 29569 RONIT COTTRELL OUTPATIEN 1 1 [facility] 15 MINUTES OFFICE 43088 A C NEFTALY OUTPATIEN 0 0 YAMILET WARE LARISSA T VISIT PSC 15 MINUTES OFFICE 87015 A C NEFTALY OUTPATIEN 0 0 YAMILET WARE LARISSA T VISIT PSC 15 MINUTES OFFICE 17421 A C NEFTALY, OUTPATIEN 9 9 YAMILET Estes NEW 30 PSC MINUTES OFFICE 90834 SHASTA VEGAS OUTPATIEN 9 9 DON R DON R T VISIT 15 MINUTES OFFICE 90897 [facility] 10 BANK ACCT MINUTES OFFICE 12186 [facility] 9 [facility] 10 BANK ACCT MINUTES OFFICE 76011 SHASTA VEGAS OUTPATIEN 9 9 DON R DON R T VISIT 15 MINUTES OFFICE 38847 FAMILY IMCHEAL MANRIQUE 8 8 CARE JESSICA T T VISIT ASSOCIATE 15 S MINUTES OFFICE 57379 SHASTA VEGAS OUTPATIEN 8 8 DON R DON R T VISIT 15 MINUTES INITIAL 03160 [facility] PREVENTIV 8 8 [facility] B[facility] ACCT NEW PT AGE 12-17 YR OFFICE 93755 SHASTA VEGAS OUTPATIEN 8 8 DON R DON R T VISIT 15 MINUTES OFFICE 83080 SHASTA VEGAS OUTPATIEN 8 8 DON R DON R T VISIT 15 MINUTES
--- OUTSIDE RECORDS SUMMARY | 2017-03-02 17:55 | External Medical Summary Rpt | CCD ---
Author Author , TRAE Tirado TRAE Address Unknown Phone [email or web address] Care Team Providers Care Adjunct Professor Of Law Name Role Phone A Ashlie WOODARD MD [...] [facility] Unavailable Unavailable [facility], [facility] ANESTH OF THE BLUE MARYJANE, MARYJANE Unavailable Unavailable ANTHONY ARISTEO, ANTHONY Unavailable Unavailable ARISTEO [facility] Unavailable [facility]available [facility] [place] DENNIS SHA, DENNIS Unavailable Unavailable SHA FEEBACK, FEEBACK Unavailable Unavailable FIELD AMB, FIELD AMB Unavailable Unavailable FIELD AMB, FIELD AMB Unavailable Unavailable FRYMAN EUG, FRYMAN Unavailable Unavailable EUG JR CLEMENCIA, CLEMENCIA, Unavailable Unavailable JR OMAIRA, MOAIRA Unavailable Unavailable OMAIRA ARISTEO, OMAIRA Unavailable Unavailable ARISTEO KAITLIN CROW MD, Unavailable Unavailable KAITLIN CROW MD HARPEL, HARPEL Unavailable Unavailable HARPEL FORTINO, HARPEL Unavailable Unavailable FORTINO [facility] Unavailable Unavailable [place], [facility] Unavailable Unavailable [place], [facility] Unavailable Unavailable [facility], [facility] Unavailable Unavailable [facility], [facility] Unavailable Unavailable INC, [facility] Unavailable [facility]available [facility], [facility] Unavailable Unavailable [facility] P, [facility] MAGALLANES HARRIS, MAGALLANES HARRIS Unavailable Unavailable MAGALLANES HARRIS, MAGALLANES HARRIS Unavailable Unavailable GRACE MAGALLANES A, Unavailable Unavailable GRACE MAGALLANES A [facility], Unavailable Unavailable [facility] Unavailable Unavailable [facility], [facility] KILPELA JEA, KILPELA Unavailable [...] Unavailable NICHOLAS SHE, Unavailable Unavailable NICHOLAS SHE [facility] Unavailable Unavailable [facility] Unavailable Unavailable PHYSICIANS, [facility] EVELIO VEGAS, Unavailable Unavailable VEGAS, DON R [facility] Unavailable Unavailable DEPT [facility], [facility] DEPT [facility] Unavailable Unavailable DEPT [facility], [facility] DEPT [facility] MINGO LEVIN Unavailable Unavailable MINGO LEVIN Unavailable Unavailable WOODARD A, WOODARD A Unavailable Unavailable WOODARD ZHANE, WOODARD Unavailable Unavailable ZHANE Purpose Continuity of Care Document - 06-10-2007 through 2016 Problems Code Diagnosis DOS Provider Status I471 SUPRAVENTRI 12-20-2016 [facility] TACHYCARDIA PHYSICIANS R002 PALPITATION 12-20-2016 [facility] R0602 SHORTNESS 12-20-2016 OF BREATH [facility] Q69422 OTHER LONG 12-20-2016 [facility] CURRENT [facility] DRUG [facility] THERAPY [id number] ENCOUNTER 12-12-2016 [facility] INSERTION PHYSICIANS INTRAUTERIN GROUP E CONTRACEPT DEVC Z392 ENCOUNTER 11-28-2016 [facility] FOLLOW-UP N858 OTHER 10-30-2016 [facility] SPECIFIED [facility] NONINFLAMMA INC TORY DISORDERS UTERUS W01399 MATERNAL 10-30-2016 [facility] CARE LW PHYSICIANS TRANS SCAR GROUP PREV DEL L75628 MATERNAL 10-30-2016 [facility] CARE UNS ANESTH OF TYPE SCAR THE BLUE PREV DEL [id number] MATERNAL 10-30-2016 [facility] EXCESS [facility] INC GROWTH 3RD TRI NA/UNS O655 OBSTRUCTED 10-30-2016 [facility] LAB[facility] DUE [facility] ABNORMAL INC MAT PELVIC ORGANS O82 ENCOUNTER 10-30-2016 [facility] FOR CD PHYSICIANS WITHOUT GROUP INDICATION Z370 SINGLE LIVE 10-30-2016 [facility] PHYSICIANS GROUP Z3A39 39 WEEKS 10-30-2016 [facility] GESTATION [facility] OF INC Z3480 ENC 10-29-2016 [facility] SUPERVISION PHYSICIANS OTH NORMAL GROUP PREG UNS TRIMESTER Z3493 ENC 10-25-2016 [facility] SUPERVISION PHYSICIANS NORMAL GROUP UNS 3 TRIMESTER O4703 FALSE LABOR 10-04-2016 [facility] BEFORE 37 PHYSICIANS CMPLETE GROUP WEEKS GEST 3RD TRI O6003 10-04-2016 [facility] LABOR [facility] WITHOUT INC DELIVERY THIRD TRIMESTER Z3A35 35 WEEKS 10-04-2016 [facility] OF INC O2693 09-25-2016 [facility] RELATED [facility] CONDITIONS INC UNS 3RD TRIMESTER Z331 09-25-2016 [facility] STATE PHYSICIANS INCIDENTAL GROUP Z3A32 32 WEEKS 09-11-2016 [facility]ATION [facility] OF INC O9989 OTH DZ & 09-09-2016 [facility] COND COMP PHYSICIANS, PREG PLLC CHILDBIRTH PUERPERIUM R000 TACHYCARDIA 09-09-2016 [facility] P X82657 ABNORMAL 07-30-2016 [facility] GLUCOSE PHYSICIANS COMPLICATIN GROUP G O2692 07-27-2016 [facility] CONDITIONS INC UNS 2ND TRIMESTER Z3A25 25 WEEKS 07-27-2016 [facility] GESTATION [facility] OF INC O471 FALSE LABOR 07-25-2016 [facility] AT/AFTER PHYSICIANS 37 GROUP COMPLETED WEEKS GEST Z3492 ENC 06-29-2016 [facility] MEDICAL NORMAL IMAGING ASS UNS 2 TRIMESTER Z36 ENCOUNTER 06-29-2016 [facility] FOR [facility] INC SCREENING OF MOTHER Z3A22 22 WEEKS 06-29-2016 [facility] OF IMAGING ASS K429 UMBILICAL 06-16-2016 [facility] HERNIA PHYSICIANS, WITHOUT PLLC OBSTRUCTION OR GANGRENE N3000 ACUTE 06-16-2016 [facility] CYSTITIS [facility] WITHOUT INC HEMATURIA O2312 INFECTIONS 06-16-2016 [facility] BLADDER IN PHYSICIANS, [facility] SECOND TRIMESTER Z3A20 20 WEEKS 06-16-2016 [facility] GESTATION PHYSICIANS, OF [facility] Z3491 ENC 03-26-2016 [facility] MEDICAL NORMAL IMAGING ASS UNS 1 TRIMESTER Z3A00 WEEKS OF 03-26-2016 [facility] GESTATION [facility] OF INC NOT SPECIFIED Z3A08 8 WEEKS 03-26-2016 [facility] OF IMAGING ASS M545 LOW BACK 03-24-2016 [facility] PAIN PHYSICIANS, [facility] O2691 03-24-2016 [facility] RELATED PHYSICIANS, CONDITIONS [facility] UNS 1ST TRIMESTER Z3201 ENCOUNTER 03-19-2016 [facility] FOR PHYSICIANS GROUP TEST RESULT POSITIVE H5203 HYPERMETROP 01-16-2016 MAGALLANES HARRIS IA BILATERAL B89193 ENCOUNTER 10-11-2015 [facility] INITIAL PHYSICIANS PRESCRIPTIO GROUP N CONTRACEPT PILLS Z3009 ENCOUNTER 10-11-2015 [facility] OT GENERAL PHYSICIANS GROUP WARE CARRIER&ADV ICE CONTRACEPT W00470 ACUTE 08-30-2015 [facility] SUPPURATIVE PHYSICIANS OM W/O GROUP RUPT EAR DRUM UNS EAR J0190 ACUTE 08-30-2015 [facility] SINUSITIS PHYSICIANS UNSPECIFIED GROUP J029 ACUTE 08-30-2015 [facility] PHARYNGITIS PHYSICIANS GROUP UNSPECIFIED Z3040 ENCOUNTER 06-09-2015 [facility] FOR PHYSICIANS SURVEILLANC GROUP E CONTRACEPTI VES UNS J069 ACUTE UPPER 04-20-2015 A Ashlie WOODARD MD PSC RESPIRATORY INFECTION UNSPECIFIED B349 VIRAL 02-28-2015 A Ashlie WOODARD INFECTION [facility] UNSPECIFIED 3670 HYPERMETROP 01-28-2015 SCIFRES ANG IA V2542 SURVEILLANC 12-10-2014 [facility] E PREV PRSC PHYSICIANS INTRAUTERN GROUP CNTRACPT DEVC V2549 SURVEILLANC 12-10-2014 [facility] E OTH PREV PHYSICIANS PRSC GROUP CONTRACEPT METHOD 3688 OTHER 09-24-2014 [facility] VISUAL DISTURBANCE S 17797 UNSPECIFIED 08-25-2014 A Ashlie WOODARD INFECTIVE PSC OTITIS EXTERNA 66388 ACUTE 08-25-2014 A Ashlie WOODARD SEROUS PSC OTITIS MEDIA 27167 DYSFUNCTION 08-25-2014 A Ashlie FLETCHER PSC EUSTACHIAN TUBE V8522 BODY MASS 08-25-2014 A Ashlie WOODARD INDEX PSC 26.0-26.9 ADULT 4660 ACUTE 07-12-2014 A Ashlie WOODARD BRONCHITIS PSC 3829 UNSPECIFIED 06-28-2014 A Ashlie WOODARD OTITIS PSC MEDIA 7840 HEADACHE 06-16-2014 [facility] V2511 ENC FOR 04-20-2014 [facility] INSERTION PHYSICIANS INTRAUTERIN GROUP E CONTRACEPT DEVICE V242 ROUTINE 03-29-2014 [facility] PHYSICIANS FOLLOW-UP GROUP 59264 FETOPELVIC 03-15-2014 [facility] DISPROPORTI PHYSICIANS ON, GROUP DELIVERED 95389 UNUSUALLY 03-15-2014 [facility] LARGE FETUS PHYSICIANS CAUS GROUP DISPROPRTN DELIVERED 90536 EXCESS 03-15-2014 [facility] PHYSICIANS GROWTH GROUP AFFECT MGMT MOTH ANTPRTM 94588 C/S DELIV 03-15-2014 COMMUNITY W/O INDICAT ANESTH OF DELIV W/WO THE BLUE ANTPRTM COND V270 OUTCOME OF 03-15-2014 [facility] DELIVERY PHYSICIANS SINGLE GROUP LIVEBORN 48517 POLYHYDRAMN 03-11-2014 [facility] IOS PHYSICIANS ANTEPARTUM GROUP COMPLICATIO N 93689 OTHER 03-09-2014 KAITLIN Schilling THREATENED [facility] WARE LABOR, ANTEPARTUM 10476 THREATENED 03-07-2014 [facility]URE [facility] LABOR INC ANTEPARTUM V220 SUPERVISION 03-03-2014 ALEX JAQUI OF NORMAL FIRST V286 SCREENING 02-24-2014 ALEX NAILS OF STREPTOCOCC US B 4779 ALLERGIC 02-23-2014 A Ashlie WOODARD RHINITIS PSC CAUSE UNSPECIFIED 34396 UNSPEC 02-18-2014 KAITLIN Schilling MALCONNOR CROW MD /MALPRESENT ATION FETUS ANTPRTM 7821 RASH AND 02-04-2014 Scot CARTWRIGHT MD PSC NONSPECIFIC SKIN ERUPTION 00198 ABN MAT 12-26-2013 [facility] GLUCOSE [facility] TOLERANCE INC COMPL PG CB/PP UNS EOC 59248 ABNORMAL 12-21-2013 ALEX NAILS MATERNAL GLUCOSE TOLERANCE ANTEPARTUM 462 ACUTE 12-17-2013 FI[facility] AMB PHARYNGITIS 4659 ACUTE URIS 12-17-2013 FIELD AMB OF UNSPECIFIED SITE 7242 LUMBAGO 12-10-2013 [facility] INC V222 12-10-2013 [facility] INCIDENTAL INC V283 ENCOUNTER 11-11-2013 [facility] NAILS ROUTINE SCREEN MALFORMATIO N ULTRASONIC 51803 ASYMPTOMATI 09-02-2013 MINGO Dailey BACTERIURIA ANTEPARTUM 67133 ACUTE 08-27-2013 FIELD AM[facility] GINGIVITIS PLAQUE INDUCED 44102 OTHER 08-27-2013 FIELD AMB SPECIFIED TMJ DISORDERS 79334 OTHER 08-06-2013 [facility] NA[facility] SPECIFED COMPLICATIO N ANTEPARTUM V2389 SUPERVISION 07-27-2013 [facility] NAILS OF OTHER HIGH-RISK V7242 07-27-2013 [facility]LEX NAILS EXAMINATION OR TEST POSITIVE RESULT V2689 OTHER 07-22-2013 [facility] SPECIFIED DISTRICT PROCREATIVE [facility] DEPT MANAGEMENT DARRYN 84912 UNSPECIFIED 07-15-2013 KILPELA JEA VIRAL INFECTION IN CCE & UNS SITE 89765 POSTNASAL 07-13-2013 [facility] DRIP PHYSICIANS GROUP 5990 URINARY 06-29-2013 [facility] TRACT PHYSICIANS INFECTION GROUP SITE NOT SPECIFIED 6264 IRREGULAR 06-29-2013 [facility] MENSTRUAL PHYSICIANS CYCLE GROUP 5589 OTH&UNSPEC 05-18-2013 FIELD AM[facility] NONINFECTIO US GASTROENTER ITIS&COLITI S 95786 FEVER 04-15-2013 KILPELA JEA UNSPECIFIED V720 EXAMINATION 02-27-2013 MAGALLANES HARRIS OF EYES AND VISION 66369 URINARY 01-17-2013 A Ashlie WOODARD FREQUENCY PSC 8488 OTHER 11-27-2012 A Ashlie WOODARD SPECIFIED PSC SITES OF SPRAINS AND STRAINS 76150 ABDOMINAL 08-26-2012 A Ashlie WOODARD PAIN, PSC GENERALIZED 42683 OTHER 08-12-2012 [facility] FATIGUE INC 8472 LUMBAR 07-14-2012 [facility] STRAIN INC 70408 NAUSEA 05-21-2012 KILPELA JEA ALONE 463 ACUTE 02-26-2012 [facility] TONSILLITIS 49558 NAUSEA WITH 09-18-2011 [facility] VOMITING 38916 CONTUSION 08-07-2011 [facility] TOD OF KNEE 1330 [...] Ashlie WOODARD UNSPECIFIED PSC NOT ELSEWHERE CLASSIFIED 80687 OTHER 08-21-2010 [facility] CO DISEASES OF [employer] CAVITY AND SINUSES 6929 CONTACT 08-17-2010 [facility] DERMATITIS& DERMATOLOGY OTHER ECZEMA DUE UNSPEC CAUSE 7061 OTHER ACNE 08-17-2010 [facility] D[facility]MAT[facility] 7068 OTHER 08-17-2010 [facility] SPECIFIED DERMATOLOGY DISEASE OF SEBACEOUS GLANDS 94439 DYSCHROMIA, 08-17-2010 [facility] UNSPECIFIED 6989 UNSPECIFIED 07-13-2010 [facility] CO PRURITIC [employer] [employer] [facility] 0088 INTESTINAL 04-12-2010 A Ashlie WOODARD INFECTION PSC DUE TO OTHER ORGANISM NEC 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 VENEREAL PSC DISEASE 44057 OTHER SPEC 01-12-2009 VEGAS, GASTRITIS DON R WITHOUT MENTION HEMORRHAGE 460 ACUTE 07-22-2008 [facility] ITIS V202 ROUTINE 09-24-2007 [facility]/CO [facility] ACCT CHECK Medications Na ND [...] 18 -1 -[address] ti [place] 50 8- 1- 00 00 SI ve [...] 18 -1 -[address] ti [place] 50 2- 7- 00 00 SI ve [...] ve C 06 20 20 46 DE WI 30 17 17 52 EN 1 09 [...] 18 -0 -[address] ti [place] 50 9- 2- 00 00 SI ve [...] ve C 06 20 20 46 DE WI 30 17 17 52 EN 1 09 [...] ve C 06 20 20 46 DE WI 30 17 17 52 EN 1 09 [...] ve C 06 20 20 46 DE WI 30 16 17 52 EN 1 09 [...] 0- 0- 00 SI 45 S ve WI [address] ED 20 [...] Procedure DOS Code Location Performer Comment BASIC [address] METABOLIC 7 [facility] PANEL CALCIUM HEALTHCAR HEALTHCAR TOTAL E EDGE E EDGE CATHETER C1759 ST ST INTRACARD 7 [facility] IAC ECHOCARDI HEALTHCAR HEALTHCAR OGRAPHY E EDGE E EDGE ANES 05317 ANESTHESI ESTEFANIA CARDIAC 7 A GROUP ELECTROPH PRACTICE YSIOL STDY W/[place] [address] THYROID 7 [facility] STIMULATI NG HEALTHCAR HEALTHCAR HORMONE E EDGE E EDGE TSH CATHETER C18[address] GUIDING 7 [facility] HEALTHCAR HEALTHCAR E EDGE E EDGE INTRDUCR/ C1893 ST ST SHEATH 7 [facility] INTRCARD EP CURVE HEALTHCAR HEALTHCAR NOT E EDGE E EDGE PEEL-AWAY CATH EP C[address] DX/ABLAT 7 [facility] NOT 3D/VECTOR HEALTHCAR HEALTHCAR MAP NOT E EDGE E EDGE COOL-TIP URINE [address] 7 RADHA RADHA TEST VISUAL HEALTHCAR HEALTHCAR COLOR E EDGE E EDGE CMPRSN METHS INTRACARD [address]93 ST JESUS IAC 7 RADHA ELECTROPH YSIOLOGIC PHYSICIAN 3D S MAPPING COMPRE [address] ST JESUS ELECTROPH 7 RADHA YSIOL XM [...] HEALTHCAR HEALTHCAR E EDGE E EDGE BLOOD [address] COUNT 7 RADHA RADHA COMPLETE AUTO&AUTO HEALTHCAR HEALTHCAR DIFRNTL E EDGE E EDGE WBC EPHYS [address] JESUS EVAL 7 RADHA W/ABLATIO N PHYSICIAN SUPRAVENT S ARRHYTHMI A INTRACARD [address]83[address] ST JESUS ECHOCARD 7 RADHA W/THER/DX PHYSICIAN IVNTJ S INCL IMG S&I CATH C17[address] ST ST ELECTROPH 7 RADHA RADHA YSIOLOGY DX OT HEALTHCAR HEALTHCAR THAN 3D E EDGE E EDGE MAP 19/< LEVONORGE J7298 [facility] ALEX STREL-RLS 7 PHYSICIAN S GROUP INTRAUTER INE JOHANNA SYS 52 MG URINE 04601 [facility] ALEX 7 PHYSICIAN TEST S GROUP VISUAL COLOR CMPRSN METHS INSERTION 11153 [facility] ALEX 7 PHYSICIAN INTRAUTER S GROUP INE DEVICE IUD ECG [address] ST JESUS ROUTINE 7 RADHA ECG W/LEAST PHYSICIAN 12 LDS S W/I&R CYTP C/V 23010 [facility], PICKLESIM AUTO THIN 7 LLC ER JR LYR PREPJ SCR MNL RESCR PHYS POSTPARTU 37446 [facility] ALEX M CARE 7 PHYSICIAN ONLY S GROUP SEPARATE PROCEDURE 72060 [facility] DELIVERY 7 PHYSICIAN ONLY S GROUP ANESTHESI 79580 COMMUNITY FEEBACK A 7 ANESTH OF THE DELIVERY BLUE ONLY PARTICLE 64477 [facility] COTTRELL AGGLUTINA 7 [facility] TION INC INC SCREEN EACH ANTIBODY 15475 [facility] HARPEL NONSTRESS 7 PHYSICIAN TEST S GROUP URNLS DIP 24204 [facility] COTTRELL [address] [facility] STICK/TAB INC INC LET REAGENT AUTO MICROSCOP Y ECG 46837 [facility] ZOFIA ROUTINE 7 PHYSICIAN ECG S GROUP W/LEAST 12 LDS I&R ONLY ECG 77844 [facility] COTTRELL ROUTINE 7 [facility] ECG INC INC W/LEAST 12 LDS TRCG ONLY W/O I&R ECHO 77023 [facility] COTTRELL TTHRC R-T [address] [facility] 2D INC INC W/WOM-MOD E COMPL SPEC&COLR D ECG 29813 [facility] ZOFIA ROUTINE 7 PHYSICIAN ECG S GROUP W/LEAST 12 LDS I&R ONLY ECG 96990 [facility] COTTRELL ROUTINE 7 [facility] ECG INC INC W/LEAST 12 LDS TRCG ONLY W/O I&R ECG 04689 REGGIE CASTANO ROUTINE 7 PHYSICIAN ECG S, PLLC W/LEAST 12 LDS I&R ONLY XTRNL ECG 03823 [facility] COTTRELL & 48 HR [address] [facility] RECORDING INC INC EXTERNAL 96659 [facility] COTTRELL ECG [address] [facility] SCANNING [place] [address] [facility] COTTRELL THYROXINE 7 [facility] TOTAL INC INC XTRNL ECG 13673 [facility] M[address]ER JR [address] [facility] S RHYTHM P W/I&R UP TO 48 HRS COMPREHEN 73753 [facility] COTTRELL SIVE 7 [facility] [place] [address] [facility] COTTRELL THYROID [address] [facility] STIMULATI INC INC NG HORMONE TSH GLUCOSE 42023 [facility] POST 7 PHYSICIAN PHYSICIAN GLUCOSE S GROUP S GROUP DOSE 67622 [facility] COTTRELL NONSTRESS 7 [facility] TEST INC INC SUSCEPTIB 69929 OR[facility] COTTRELL LTY STDY 7 [facility] ANTIMICRB INC INC IAL MICRO/AGA R DILUTJ URNLS DIP 33952 [facility] COTTRELL 7 [facility] STICK/TAB INC INC LET REAGENT AUTO MICROSCOP Y 62800 [facility] HARPEL NONSTRESS 7 PHYSICIAN TEST S GROUP US PREG 61699 [facility] COTTRELL UTERUS 7 [facility] W/DETAIL INC INC APOLLO 1ST GESTATION US PREG 88546 MEGGAN W[facility] UTERUS 7 MEDICAL AFTER 1ST IMAGING TRIMEST ASS GESTATION CULTURE 71982 [facility] COTTRELL BACTERIAL 7 [facility] INC INC QUANTTATI VE COLONY COUNT URINE URINE 71794 [facility] COTTRELL 7 [facility] TEST INC INC VISUAL COLOR CMPRSN METHS URNLS DIP 08879 [facility] COTTRELL 7 [facility] STICK/TAB INC INC LET REAGENT AUTO MICROSCOP Y US PREG 68195 [facility] COTTRELL UTERUS 6 [facility] REAL TIME INC INC W/IMAGE DCMTN TRANSVAG URNLS DIP 02019 [facility] COTTRELL 6 [facility] STICK/TAB INC INC LET REAGENT AUTO MICROSCOP Y CULTURE 64941 [facility] COTTRELL BACTERIAL 6 [facility] INC INC QUANTTATI VE COLONY COUNT URINE URINE 74367 [facility] 6 PHYSICIAN JAQUI TEST S GROUP VISUAL COLOR CMPRSN METHS DRUG TST G0477 [facility] PRESUMP;C 6 PHYSICIAN JAQUI PBL BEING S GROUP READ DC OPT OBV ONLY FRAMES V2020 ELPIDIO IGLESIAS PURCHASES 6 SCRATCH V2760 ELPIDIO IGLESIAS RESISTANT 6 COATING PER LENS LENS V2784 ELPIDIO MAGALLANES HARRIS POLYCARBO 6 ERVIN OR EQUAL ANY INDEX PER LENS SPHERE V2100 ELPIDIO MAGALLANES HARRIS SINGLE 6 VISION PLANO +/- 4.00 PER LENS FITTING 30274 MAGALLANES HARRIS MAGALLANES HARRIS SPECTACLE 6 S XCPT APHAKIA MONOFOCAL OPHTH 36948 [facility] 6 XM&EVAL COMPRHNSV ESTAB PT 1/> URINE 59195 [facility] ALEX 6 PHYSICIAN JAQUI TEST S GROUP VISUAL COLOR CMPRSN METHS INFECTIOU 12134 Scot Ashlie CATRACHO TOD S AGENT 5 YAMILET WARE DNA/RNA PSC INFLUENZA 1ST 2 TYPES OPHTH 32063 [facility] 5 ANG ANG XM&EVAL COMPRHNSV ESTAB PT 1/> REMOVAL 90774 [facility] INTRAUTER 5 PHYSICIAN [place] [address] [facility] IRON 5 [place] [address] [facility] THYROID 5 DIAGNOSTI DIAGNOSTI STIMULATI CS CS NG HORMONE TSH BASIC 27014 [facility] METABOLIC 5 DIAGNOSTI DIAGNOSTI PANEL CS CS CALCIUM TOTAL IRON 92987 [facility] BINDING 5 DIAGNOSTI DIAGNOSTI CAPACITY CS CS URINE 24928 [facility] J[facility] 4 PHYSICIAN JAQUI TEST S GROUP VISUAL COLOR CMPRSN METHS INSERTION 60273 [facility] 4 PHYSICIAN JAQUI INTRAUTER S GROUP INE DEVICE IUD LEVONORGE J7302 [facility] ALEX STREL-RLS 4 PHYSICIAN JAQUI E S GROUP INTRAUTER N CNTRACPT 52 MG LOW 741 [facility] COTTRELL CERVICAL 4 [facility] INC INC SECTION 27415 [facility] SCHULSTAD DELIVERY 4 PHYSICIAN CAM ONLY S GROUP 92322 [facility] ALEX DELIVERY 4 PHYSICIAN JAQUI ONLY S GROUP W/POSTPAR ANTONELLA CARE ANESTHESI 60986 [facility] 4 ANESTH SHE OF THE DELIVERY BLUE ONLY DOPPLER 56102 [facility] ALEX VELOCIMET 4 PHYSICIAN [place] [address] [facility] ALEX 4 PHYSICIAN JAQUI UTERUS S GROUP LIMITED 1/> FETUSES 43580 [facility] ALEX BIOPHYSIC 4 PHYSICIAN JAQUI AL S GROUP PROFILE W/O NON-STRES S TESTING 29316 KAITLIN CROW NONSTRESS 4 MIGNON WARE FORTINO TEST DOPPLER 87817 [facility] VELOCIMET 4 PHYSICIAN JAQUI RY S GROUP UMBILICAL ARTERY 32838 [facility] BIOPHYSIC 4 PHYSICIAN JAQUI AL S GROUP PROFILE W/O NON-STRES S TESTING US PREG 41543 [facility] UTERUS 4 PHYSICIAN JAQUI REAL TIME S GROUP F/U TRNSABDL PER FETUS 76157 [facility] COTTRELL NONSTRESS 4 [facility] TEST INC INC URNLS DIP 41169 [facility] RONIT 4 [facility] STICK/TAB INC INC LET REAGENT AUTO MICROSCOP Y DOPPLER 31270 [facility] VELOCIMET 4 JAQUI JAQUI RY UMBILICAL ARTERY US PREG 61234 [facility] UTERUS 4 JAQUI JAQUI REAL TIME F/U TRNSABDL PER FETUS 53225 [facility] BIOPHYSIC 4 JAQUI JAQUI AL PROFILE W/O NON-STRES S TESTING CUL BACT 92811 COMBINED COMBINED XCPT 4 PHYSICIAN PHYSICIAN URINE S LA S LA BLOOD/STO OL AEROBIC ISOL US PREG 31942 KAITLIN CROW UTERUS 4 MIGNON WARE FORTINO AFTER 1ST TRIMEST GESTATION 30715 KAITLIN CROW NONSTRESS 4 MIGNON WARE FORTINO TEST URNLS DIP 39221 [facility] STICK/TAB INC [place] [address] [facility] COTTRELL INFUSION 4 [facility] HYDRATION INC INC INITIAL 31 MIN-1 HOUR GLUCOSE 73778 RONIT [facility] TOLERANCE 4 [facility] EA ADDL INC INC BEYOND 3 SPECIMENS URNLS DIP 90258 [facility] 4 [facility] STICK/TAB INC INC LET RGNT NON-AUTO W/O MICRSCP GLUCOSE 95801 RONIT [place] TOLERANCE 4 [facility] TEST GTT INC INC 3 SPECIMENS GLUCOSE 25438 ALEX JOHNSON POST 4 JAQUI JAQUI GLUCOSE DOSE IAADIADOO 70521 FIELD AMB FIELD AMB 4 STREPTOCO CCUS GROUP A URNLS DIP 60453 [facility] 4 [facility] STICK/TAB INC INC LET REAGENT AUTO MICROSCOP Y 68471 RONIT COTTRELL NONSTRESS 4 [facility] TEST INC INC US PREG 72988 JOHNSON JOHNSON UTERUS 4 JAQUI JAQUI AFTER 1ST TRIMEST / GESTATION CULTURE 86097 [facility] COTT[facility] BACTERIAL 4 [facility] INC INC [place] [address] RONIT COTTRELL STREPTOCO 4 [facility] CCUS INC INC GROUP A CUL BACT 93162 [facility] COTTRELL XCPT 4 [facility] URINE INC INC BLOOD/STO OL AEROBIC ISOL URNLS DIP 92260 [facility]IT 4 [facility] STICK/TAB INC INC LET REAGENT AUTO MICROSCOP Y US PREG 09356 JOHNSON ALEX UTERUS 4 JAQUI JAQUI REAL TIME W/IMAGE DCMTN TRANSVAG ANTIBODY 03985 COMBINED COMBINED CHLAMYDIA 4 PHYSICIAN PHYSICIAN S LA S LA URINE 90821 ALEX JOHNSON 4 JAQUI JAQUI TEST VISUAL COLOR CMPRSN METHS CUL BACT 91875 COMBINED COMBINED XCPT 4 PHYSICIAN PHYSICIAN URINE S LA S LA BLOOD/STO OL AEROBIC ISOL URINE 26210 [facility] DEPT VISUAL DARRYN DARRYN COLOR CMPRSN METHS IAADIADOO 03757 KILPELA KILPELA 4 JEA JEA INFLUENZA URNLS DIP 85852 [facility] 4 PHYSICIAN PHYSICIAN STICK/TAB S GROUP S GROUP LET RGNT NON-AUTO W/O MICRSCP URINE 53331 [facility] 4 PHYSICIAN PHYSICIAN TEST S GROUP S GROUP VISUAL COLOR CMPRSN METHS NONINVASI 08038 FIELD AMB FIELD AMB VE 4 EAR/PULSE OXIMETRY SINGLE DETER IAADIADOO 79587 KILPELA KILPELA 3 JEA JEA INFLUENZA IAADIADOO 59187 [facility] CHERRIE KORTNEY CHERRIE 3 STREPTOCO CCUS GROUP A OPHTH 36127 [facility] 3 XM&EVAL COMPRHNSV ESTAB PT 1/> FITTING 73049 MAG[facility]AN[facility]IA IGLESIAS SPECTACLE 3 S XCPT APHAKIA MONOFOCAL SPHERE V2100 [facility] IGLESIAS SINGLE 3 VISION PLANO +/- 4.00 PER LENS DETERMINA 28103 [facility] MAGALLANES HARRIS TION 3 REFRACTIV E STATE FRAMES V2020 [facility] MAG[facility]AN[facility] PURCHASES 3 IAADIADOO 06931 FIELD AMB FIELD AMB 3 STREPTOCO CCUS GROUP A IAADIADOO 29757 A C YAMILET A 3 YAMILET WARE STREPTOCO PSC CCUS GROUP A COLLECTIO 01457 A C YAMILET A N VENOUS 3 YAMILET WARE BLOOD PSC VENIPUNCT URE BLOOD 06922 A C YAMILET A COUNT 3 YAMILET WARE COMPLETE PSC AUTO&AUTO DIFRNTL WBC SUSCEPTIB 52973 [facility] LTY ST[facility] ANTIMICRB INC INC IAL MICRO/AGA R DILUTJ CULTURE 83743 [facility] BACTERIAL 3 [facility] INC INC QUANTTATI VE COLONY COUNT URINE CULTURE 73068 [facility] BCT 3 [facility] ISOL&PRSM INC INC PTV ID ISOLATE EA URINE URINE 44125 [facility] TEST INC INC VISUAL COLOR CMPRSN METHS URNLS DIP 91862 [facility] STICK/TAB INC INC LET REAGENT AUTO MICROSCOP Y URNLS DIP 82743 [facility] STICK/TAB INC INC LET REAGENT AUTO MICROSCOP Y URINE 09693 [facility] TEST INC INC VISUAL COLOR CMPRSN METHS IAADIADOO 65035 CATRACHO TOD CATRACHO TOD 3 INFLUENZA IAADIADOO 43793 KILPELA KILPELA 3 JEA JEA STREPTOCO CCUS GROUP A IAADIADOO 32906 KILPELA KILPELA 3 JEA JEA INFLUENZA IAADIADOO 15355 CATRACHO ADANES TOD 2 STREPTOCO CCUS GROUP A OPHTH 76010 SCIFRES SCIFRES MEDICAL 2 ANG ANG XM&EVAL COMPRHNSV ESTAB PT 1/> FITTING 53071 SCIFRES SCIFRES SPECTACLE 2 ANG ANG S XCPT APHAKIA MONOFOCAL DETERMINA 93440 SCIFRES SCIFRES TION 2 ANG ANG REFRACTIV E STATE SPHERE V2100 SCIFRES SCIFRES SINGLE 2 ANG ANG VISION PLANO +/- 4.00 PER LENS FRAMES V2020 SCIFRES SCIFRES PURCHASES 2 ANG ANG IAADIADOO 65635 CATRACHO TOD CATRACHO TOD 2 STREPTOCO CCUS GROUP A CUL BACT 56508 QUEST QUEST XCPT 2 DIAGNOSTI DIAGNOSTI URINE CS CS BLOOD/STO OL AEROBIC ISOL IAADIADOO 86003 CATRACHO [facility] TOD 2 STREPTOCO CCUS GROUP A IAADIADOO 80326 CATRACHO [facility] 2 INFLUENZA IAADIADOO 28502 DENNIS DENNIS 2 SHA SHA STREPTOCO CCUS GROUP A CONTRACEP S4993 RONIT COTTRELL TIVE 2 [facility] CONTR[facility] S4993 RONIT COTTRELL TIVE 1 [facility] S4993 RONIT COTTRELL TIVE 1 [facility] CONTR[facility] A4267 RONIT COTTRELL TIVE 1 [facility] CONDOM MALE EACH SPHERE V2100 JOANA SCIFRES SINGLE 1 VISION ANG VISION PLANO +/- 4.00 PER LENS FITTING 19914 JOANA SCIFRES SPECTACLE 1 VISION ANG S XCPT APHAKIA MONOFOCAL OPHTH 87361 JOANA SCIFRES MEDICAL 1 VISION ANG XM&EVAL COMPRHNSV ESTAB PT 1/> FRAMES V2020 JOANA SCIFRES PURCHASES 1 VISION ANG CONTRACEP S4993 RONIT COTTRELL TIVE 1 [facility] CONTROL BARB 39712 RONIT COTTRELL VACCINE 1 [facility] SUBCUTANE OUS USE IM ADM 79486 RONIT COTTRELL PRQ ID 1 [facility] NJXS 1 VACCINE IADNA 26978 Scot HIGGINBOTHAM STREPTOCO 1 YAMILET DIAS CCUS PSC GROUP A QUANTIFIC ATION TISS ALMA ROSA 99666 ADVANCED ATKINS SLIDE 1 DERMATOLO TRA SAMPS GY SKN/HR/NL S FNGI/ECTO PARASIT BLOOD 30543 A C A C COUNT 0 YAMILET WOODARD MD COMPLETE PSC PSC AUTO&AUTO DIFRNTL WBC FRAMES V2020 JOANA MAGALLANES, PURCHASES 0 VISION GRACE A OPHTH 39874 JOANA MAGALLANES, MEDICAL 0 VISION GRACE A XM&EVAL COMPRHNSV ESTAB PT 1/> FITTING 23970 JOANA MAGALLANES, SPECTACLE 0 VISION GRACE A S XCPT APHAKIA MONOFOCAL SPHERE V2100 JOANA MAGALLANES, SINGLE 0 VISION GRACE A VISION PLANO +/- 4.00 PER LENS IADNA 68190 Scot HIGGINBOTHAM, STREPTOCO 9 YAIMLET HAZEL CCUS PSC GROUP A QUANTIFIC ATION IAADIADOO 62566 Scot HIGGINBOTHAM, 9 YAMILET HAZEL INFLUENZA PSC IM ADM 18015 [facility] PRQ ID [facility] NJXS 1 BANK ACCT VACCINE IM ADM 94630 [facility] PRQ ID 9 [facility] NJXS 1 BANK ACCT VACCINE MPSV4 68746 [facility] VACCINE 9 [facility] ACYW-135 BANK ACCT SUBQ USE FITTING 34908 JOANA NAJALI, SPECTACLE 9 VISION MICHAELA M S XCPT APHAKIA MONOFOCAL SPHERE V2100 JOANA ALBA, SINGLE 9 VISION MICHAELA Freire VISION PLANO +/- 4.00 PER LENS OPHTH 20170 JOANA ALBA, MEDICAL 9 VISION MICHAELA Freire XM&EVAL COMPRHNSV ESTAB PT 1/> FRAMES V2020 JOANA ALBA, PURCHASES 9 [place]AM Freire IAADIADOO 96551 FAMILY TAMMYBERRY, 8 CARE JESSICA T STREPTOCO ASSOCIATE CCUS S GROUP A BLOOD 64843 FAMILY TAMMYBERRY, COUNT 8 CARE JESSICA Estes COMPLETE ASSOCIATE AUTO&AUTO S DIFRNTL WBC Encounters Encounter Start End Date Code Location Performer Type Date HOSPITAL [facility] 7 7 [facility] OFFICE 57557 [facility] 7 7 [facility] 45 MINUTES PHYS[facility] S [facility] - 7 7 [facility] OFFICE 83741 [facility] [place] OUTPATI[facility] 7 7 PHYSICIAN T VISIT S GROUP 15 MINUTES OFFICE 00599 [facility] OUTPATIEN 7 7 PHYSICIAN T VISIT S GROUP 15 MINUTES OFFICE 23052 [facility] OUTPATI[facility] 7 7 PHYSICIAN T VISIT S GROUP 15 MINUTES OFFICE 97958 [facility] [place] OUTPATIEN 7 7 PHYSICIAN T VISIT S GROUP 15 MINUTES HOSPITAL R[facility]IT - 7 7 [facility] T OFFICE 71667 [facility] OUTPATIEN 7 7 PHYSICIAN T VISIT S GROUP 15 MINUTES HOSPITAL RONIT - 7 7 [facility] INC T OFFICE 89799 [facility] [place] OUTPATI[facility] 7 7 PHYSICIAN T VISIT S GROUP 15 MINUTES HOSPITAL RONIT - 7 7 [facility] INC T OFFICE 35948 [facility] OUTPATIEN 7 7 PHYSICIAN T VISIT S GROUP 25 MINUTES HOSPITAL RONIT - 7 7 [facility] OUTPATIEN INC T OFFICE 96357 [facility] [place] OUTPATI[facility] 7 7 PHYSICIAN T VISIT S GROUP 15 MINUTES HOSPITAL RONIT - 7 7 [facility] OUTPATIEN INC T OFFICE 90206 [facility] ZOF[facility] OUTPATIEN 7 7 PHYSICIAN T NEW 60 S GROUP MINUTES EMERGENCY 73340 [facility] 7 7 [facility] DEPARTMEN INC T VISIT MODERATE SEVERITY EMERGENCY 96961 REGGIE CASTANO DEPT 7 7 PHYSICIAN VISIT S, PLLC HIGH SEVERITY& THREAT [facility] RO[facility] - 7 7 [facility] OUTPATIEN INC T OFFICE 84047 [facility] ALEX OUTPATIEN 7 7 PHYSICIAN T VISIT S GROUP 15 MINUTES OFFICE 30209 [facility] [place] OUTPATI[facility] 7 7 PHYSICIAN T VISIT S GROUP 15 MINUTES OFFICE 22685 [facility] A[facility] OUTPATIEN 7 7 PHYSICIAN T VISIT S GROUP 15 MINUTES HOSPITAL RONIT - 7 7 [facility] OUTPATIEN INC T OFFICE 25815 [facility] [place] OUTPATI[facility] 7 7 PHYSICIAN T VISIT S GROUP 15 MINUTES HOSPITAL RONIT - 7 7 [facility] OUTPATIEN INC T OFFICE 91573 [facility] [place] OUTPATIEN 7 7 PHYSICIAN T VISIT S GROUP 15 MINUTES EMERGENCY 49374 REGGIE KHANNA 7 7 PHYSICIAN JR DEPARTMEN S, [facility] T VISIT HIGH/URGE NT SEVERITY EMERGENCY 16142 [facility] 7 7 [facility] DEPARTMEN INC T VISIT LOW/MODER SEVERITY HOSPITAL RON[facility] - 7 7 [facility] OUTPATIEN INC T OFFICE 65356 [facility] [place] OUTPATI[facility] 7 7 PHYSICIAN T VISIT S GROUP 15 MINUTES OFFICE 58875 [facility] OUTPATIEN 6 6 PHYSICIAN T VISIT S GROUP 15 MINUTES HOSPITAL RONIT - 6 6 [facility] OUTPATIEN INC T EMERGENCY 56010 REGGIE OMAIRA 6 6 PHYSICIAN ARISTEO DEPARTMEN S, PLLC T VISIT HIGH/URGE NT SEVERITY HOSPITAL RNOIT - 6 6 [facility] OUTPATIEN INC T EMERGENCY 77324 [facility] 6 6 [facility] INC T VISIT LIMITED/M INOR PROB OFFICE 08738 [facility] [place] OUTPATIEN 6 6 PHYSICIAN JAQUI T VISIT S GROUP 25 MINUTES OFFICE 87868 [facility] [place] OUTPATIEN 6 6 PHYSICIAN JAQUI T VISIT S GROUP 15 MINUTES OFFICE 62642 [facility] ANTHONY OUTPATIEN 6 6 PHYSICIAN ARISTEO T VISIT S GROUP 15 MINUTES OFFICE 19799 [facility] ALEX OUTPATIEN 6 6 PHYSICIAN JAQUI T VISIT 5 S GROUP MINUTES OFFICE 55811 A Ashlie WOODARD OUTPATIEN 5 5 YAMILET WARE ZHANE T VISIT PSC 15 MINUTES OFFICE 48656 [facility] ALEX OUTPATIEN 5 5 PHYSICIAN JAQUI T VISIT 5 S GROUP MINUTES OFFICE 76298 A Ashlie BARON OUTPATIEN 5 5 YAMILET WARE T VISIT PSC 15 MINUTES OFFICE 11247 A Ashlie WOODARD A OUTPATIEN 5 5 YAMILET WARE T VISIT PSC 15 MINUTES OFFICE 49751 A Ashlie WRAY OUTPATIEN 5 5 YAMILET WARE JEScot T VISIT PSC 15 MINUTES OFFICE 29550 A Ashlie WRAY OUTPATIEN 5 5 YAMILET WARE JEScot T VISIT PSC 15 MINUTES OFFICE 66027 RONIT SWAN OUTPATIEN 5 5 [facility] T VISIT HOSPITAL 15 MINUTES OFFICE 37190 [facility] [place] OUTPATIEN 4 4 PHYSICIAN JAQUI T VISIT S GROUP 15 MINUTES HOSPITAL RONIT - 4 4 [facility] INPATIENT INC [facility]OSPITAL [facility]ONIT - 4 4 [facility] OUTPATIEN INC T OFFICE 42593 ALEX MARTINEZE OUTPATIEN 4 4 JAQUI JAQUI T VISIT 15 MINUTES OFFICE 08605 [facility] OUTPATIEN 4 4 JAQUI JAQUI T VISIT 15 MINUTES OFFICE 30445 A C FIELD AMB OUTPATIEN 4 4 YAMILET WARE T VISIT PSC 15 MINUTES OFFICE 05942 KAITLIN CROW OUTPATIEN 4 4 MIGNON FREITAS T VISIT 15 MINUTES HOSPITAL RONIT - 4 4 [facility] T OFFICE 24044 ALEX MARTINEZE OUTPATIEN 4 4 JAQUI JAQUI T VISIT 15 MINUTES OFFICE 01315 A Ashlie WRAY OUTPATIEN 4 4 YAMILET WARE JEScot T VISIT PSC 15 MINUTES OFFICE 55757 [facility]LEX [place] OUTPATIEN 4 4 JAQUI JAQUI T VISIT 15 MINUTES OFFICE 62551 ALEX MARTINEZE OUTPATIEN 4 4 JAQUI JAQUI T VISIT 15 MINUTES OFFICE 11889 [facility] OUTPATIEN 4 4 JAQUI JAQUI T VISIT 15 MINUTES HOSPITAL RONIT - 4 4 [facility] T OFFICE 31901 [facility] OUTPATIEN 4 4 JAQUI JAQUI T VISIT 5 MINUTES OFFICE 52337 FIELD AMB FIELD AMB OUTPATIEN 4 4 T VISIT 15 MINUTES OFFICE 39085 [facility] OUTPATIEN 4 4 JAQUI JAQUI T VISIT 15 MINUTES HOSPITAL RONIT - 4 4 [facility] OUTPATIEN INC T OFFICE 39882 ALEX MARTINEZE OUTPATIEN 4 4 JAQUI JAQUI T VISIT 15 MINUTES OFFICE 65371 [facility] OUTPATIEN 4 4 JAQUI JAQUI T VISIT 15 MINUTES OFFICE 16615 FIELD AMB FIELD AMB OUTPATIEN 4 4 T VISIT 15 MINUTES OFFICE 72165 [facility] OUTPATIEN 4 4 JAQUI JAQUI T VISIT 15 MINUTES OFFICE 41759 FIELD AMB FIELD AMB OUTPATIEN 4 4 T VISIT 15 MINUTES EMERGENCY 55694 [facility] 4 4 [facility] DEPARTMEN INC T VISIT MODERATE SEVERITY EMERGENCY 98211 [place] [facility] 4 4 DEPARTMEN T VISIT HIGH/URGE NT SEVERITY HOSPITAL RONIT - 4 4 [facility] OUTPATIEN INC T OFFICE 74538 FIELD AMB FIELD AMB OUTPATIEN 4 4 T VISIT 15 MINUTES OFFICE 88251 ALEX MARTINEZE OUTPATIEN 4 4 JAQUI JAQUI T VISIT 15 MINUTES OFFICE 08790 KILPELA KILPELA OUTPATIEN 4 4 JEA JEA T VISIT 15 MINUTES OFFICE 38850 ALEX MARITNEZE OUTPATIEN 4 4 JAQUI JAQUI T NEW 45 MINUTES OFFICE 44186 [facility] DEPT [facility] DEPT 10 DARRYN DARRYN MINUTES OFFICE 17534 KILPELA KILPELA OUTPATIEN 4 4 JEA JEA T VISIT 15 MINUTES OFFICE 13632 [facility] OUTPATIEN 4 4 PHYSICIAN T VISIT S GROUP 10 MINUTES OFFICE 45978 [facility] OUTPATIEN 4 4 PHYSICIAN T VISIT S GROUP 15 MINUTES OFFICE 23380 FIELD AMB FIELD AMB OUTPATIEN 4 4 T VISIT 15 MINUTES OFFICE 07338 KILPELA KILPELA OUTPATIEN 3 3 JEScot JEA T VISIT 15 MINUTES OFFICE 11789 KORTNEY CHERRIE KORTNEY CHERRIE OUTPATIEN 3 3 T VISIT 15 MINUTES OFFICE 39562 FIELD AMB FIELD AMB OUTPATIEN 3 3 T VISIT 15 MINUTES OFFICE 08646 A Ashlie HAYDEN TOD OUTPATIEN 3 3 YAMILET WARE T VISIT PSC 10 MINUTES OFFICE 69999 A Ashlie WRAY OUTPATIEN 3 3 YAMILET WARE JEA T VISIT PSC 15 MINUTES OFFICE 97241 A Ashlie WOODARD A OUTPATIEN 3 3 YAMILET WARE T VISIT PSC 15 MINUTES OFFICE 56128 A Ashlie WOODARD A OUTPATIEN 3 3 YAMILET WARE T VISIT PSC 15 MINUTES HOSPITAL RONIT - 3 3 [facility] OUTPATIEN INC T EMERGENCY 46932 TE DOCKERY 3 3 [facility] VISIT HIGH/URGE NT SEVERITY EMERGENCY 35264 RONIT 3 3 [facility] DEPARTMEN INC T VISIT LOW/MODER SEVERITY HOSPITAL RONIT - 3 3 [facility] T EMERGENCY 52412 RONIT 3 3 [facility] DEPARTMEN INC T VISIT LOW/MODER SEVERITY EMERGENCY 19286 OMAIRA CASTANO 3 3 [facility] DEPARTMEN T VISIT HIGH/URGE NT SEVERITY OFFICE 94887 CATRACHO TOD CATRACHO TOD OUTPATIEN 3 3 T VISIT 15 MINUTES OFFICE 39745 CATRACHO TOD CATRACHO TOD OUTPATIEN 3 3 T VISIT 15 MINUTES OFFICE 46983 CATRACHO TOD CATRACHO TOD OUTPATIEN 3 3 T VISIT 15 MINUTES OFFICE 83709 KILPELA KILPELA OUTPATIEN 3 3 JEScot JEA T VISIT 15 MINUTES OFFICE 03709 CATRACHO RYAN TOD OUTPATIEN 3 3 T VISIT 15 MINUTES OFFICE 60136 KILPESKYLER KILPELA OUTPATIEN 2 2 JEScot JEA T VISIT 15 MINUTES OFFICE 14011 CATRACHO RYAN TOD OUTPATIEN 2 2 T VISIT 15 MINUTES OFFICE 03740 CATRACHO RYAN TOD OUTPATIEN 2 2 T VISIT 15 MINUTES OFFICE 07970 CATRACHO RYAN TOD OUTPATIEN 2 2 T VISIT 15 MINUTES OFFICE 38895 CATRACHO RYAN TOD OUTPATIEN 2 2 T VISIT 15 MINUTES OFFICE 24090 CATRACHO RYAN TOD OUTPATIEN 2 2 T VISIT 15 MINUTES OFFICE 59786 CATRACHO RYAN TOD OUTPATIEN 2 2 T VISIT 15 MINUTES OFFICE 98424 CATRACHO RYAN TOD OUTPATIEN 2 2 T VISIT 15 MINUTES OFFICE 66427 [facility] OUTPATIEN 2 2 SHA SHA T VISIT 15 MINUTES OFFICE 37474 CATRACHO RYAN TOD OUTPATIEN 2 2 T VISIT 15 MINUTES OFFICE 14109 [facility] [place] OUT[facility] 2 2 [facility] 10 MINUTES OFFICE 22973 CATRACHO RYAN TOD OUTPATIEN 2 2 T VISIT 15 MINUTES OFFICE 60695 CATRACHO RYAN TOD OUTPATIEN 2 2 T VISIT 15 MINUTES OFFICE 18140 RONIT [facility]ON[facility] OUTPATIEN 1 1 [facility] 10 MINUTES OFFICE 03979 CATRACHO RYAN TOD OUTPATIEN 1 1 T VISIT 15 MINUTES OFFICE 44376 Scot Dailey CATRACHO TOD OUTPATIEN 1 1 YAMILET WARE T VISIT PSC 15 MINUTES PERIODIC 30635 RONIT COTTRELL PREVENTIV 1 1 [facility] CENTER PATIENT 17YRS OFFICE 09291 [facility] ATKINS OUTPATIEN 1 1 DERMATOLO TRA T VISIT GY 15 MINUTES OFFICE 75391 A C NEFTALY OUTPATIEN 1 1 YAMILET WARE LARISSA T VISIT PSC 15 MINUTES OFFICE 32076 A C NEFTALY OUTPATIEN 1 1 YAMILET WARE LARISSA T VISIT PSC 15 MINUTES OFFICE 66363 RONIT COTTRELL OUTPATIEN 1 1 [facility] 10 MINUTES OFFICE 23448 A C NEFTALY OUTPATIEN 1 1 YAMILET WARE LARISSA T VISIT PSC 15 MINUTES OFFICE 27106 RONIT COTTRELL OUTPATIEN 1 1 [facility] 10 MINUTES OFFICE 20111 [facility] CONSULTAT 1 1 DERMATOLO TRA ION GY NEW/ESTAB PATIENT 40 MIN OFFICE 82980 A C NEFTALY OUTPATIEN 1 1 YAMILET WARE LARISSA T VISIT PSC 15 MINUTES OFFICE 21003 A C NEFTALY OUTPATIEN 1 1 YAMILET WARE LARISSA T VISIT PSC 15 MINUTES OFFICE 41498 RONIT COTTRELL OUTPATIEN 1 1 [facility] 10 MINUTES OFFICE 88716 A C NEFTALY OUTPATIEN 1 1 YAMILET WARE LARISSA T VISIT PSC 15 MINUTES OFFICE 24369 RONIT COTTRELL OUTPATIEN 1 1 [facility] 15 MINUTES OFFICE 97142 A C NEFTALY OUTPATIEN 0 0 YAMILET WARE LARISSA T VISIT PSC 15 MINUTES OFFICE 83715 A C NEFTALY OUTPATIEN 0 0 YAMILET WARE LARISSA T VISIT PSC 15 MINUTES OFFICE 59700 A C NEFTALY, OUTPATIEN 9 9 YAMILET Estes NEW 30 PSC MINUTES OFFICE 35153 [facility] OUTPATIEN 9 9 DON R DON R T VISIT 15 MINUTES OFFICE 89007 [facility]PAT[facility] 9 [facility] 10 BANK ACCT MINUTES OFFICE 49919 [facility] OUTPAT[facility] 9 9 [facility] 10 BANK ACCT MINUTES OFFICE 94657 [facility] OUTPATIEN 9 9 DON R DON R T VISIT 15 MINUTES OFFICE 00369 FAMILY MICHEAL MANRIQUE 8 8 CARE JESSICA T T VISIT ASSOCIATE 15 S MINUTES OFFICE 87765 [facility] OUTPATIEN 8 8 DON R DON R T VISIT 15 MINUTES INITIAL 63854 [facility] PREVENTIV 8 8 [facility] MEDIC[facility] BANK ACCT NEW PT AGE 12-17 YR OFFICE 34261 [facility] OUTPATIEN 8 8 DON R DON R T VISIT 15 MINUTES OFFICE 73490 [facility] OUTPATIEN 8 8 DON R DON R T VISIT 15 MINUTES
--- NOTE | 2017-03-02 17:56 | Urgent Treatment Center Report ---
See Addendum History of Present Issue Date/Time Seen by Provider 03/02/17 3484 Visit Reason Pt arrived: Presenting Problem: Location if Accident: Onset of symptoms date/time:/ or onset unknown for: Have you (or family members/close friends) recently traveled outside the [place]? If Yes, where/when: Have you had exposure to infectious disease within the past month? TB? Other? Specify: Source patient, RN notes reviewed Exam Limitations no limitations Comment 21-year-old female presents for sore throat, enlarged lymph nodes, nasal congestion, and cough for 4 days. Patient states she's been taking over-the- counter medicine with no improvement. Patient reports taking Keflex for an ingrown toenail. ALLERGIES Coded Allergies: meperidine (From DEMEROL) (10/30/16) Home Medications Discontinued Scripts Oxycodone 5MG/[id number] (Oxycodone-Acetaminophen 5-325) 1-2 TAB PO Q4HP PRN MODERATE TO SEVERE PAIN #30 TAB Prov: 11/02/16 DC: 02/25/17850 Reported Medications Cephalexin (Keflex 500MG) Discontinued Reported Medications Polyethylene Glycol 3350 (Miralax) 17 GM PO DAILY Vit/Iron Fumarate/FA (Classic Tablet) 1 TAB PO DAILY #30 TAB DC: 02/25/1751 DIGOXIN (Digox) 0.125 MG PO DAILY BISOPROLOL FUMARATE (Bisoprolol 5MG) 2.5 MG PO DAILY Ferrous Sulfate (Ferrous Sulfate 325MG) 325 MG PO DAILY #30 DC: 02/25/1751 History Medical History General CAD? No Angina: No [place]: No Hypertension? No Hyperlipidemia? No CHF? No DVT? No PE? No COPD? No Asthma? No Anemia? No GERD? No Gastric ulcers? No GI Bleed? No Hernia? No Thyroid Problems? No Hypothyroidism? No CVA? No Seizures? No Diabetes? No Renal Insuffiency? No UTI? No Stones? No BPH? No GB Disease: No Nephritic Syndrome? No Asplenia? No Hepatitis? No Sickle Cell Disease? No Arthritis? No Migraines? No Cataracts? No Glaucoma? No MRSA? No HIV? No TB? No Anxiety? No Depression? No Cancer? No More? Yes Additional hx: SVT Immunization HX DT/Tetanus 1-4 YRS Flu 2014-15FSN Pneumonia Refuses Surgical Hx Previous Surgery?Y WISDOM TEETH - 2014,2017 HEART ABLASION - 2017 Family History Family HX Diabetes Yes Hypertension Yes Cancer Yes TB No Social History Alcohol Alcohol: No Review of Systems All Other Systems Reviewed and Negative ENT see HPI, throat pain. Respiratory denies no symptoms reported Physical Exam Vital Signs Vital Signs Date Time Temp Pulse Resp B/P Pulse O2 O2 Flow FiO2 Ox Delivery Rate 03/02 1746 98.0 96 18 104/63 96 - WBC >12,000 or <4,000 or 10% bands? 2 or more SIRS Criteria Met? B/P: MAP: Creatinine >2.0? UA output<0.5ml/kg/hr for 2 hrs? Platelet count >100,000? Lactate >2.0mmol/1? INR >1.2 or PTT > than 60 sec? Evidence of Organ Dysfunction? Provider documented clinical suspician of infection? Sepsis Criteria Count: Sepsis Risk: General Appearance normal appearance, no apparent distress Eye Exam - bilateral eye normal exam, bilateral eye PERRL, bilateral eye EOMI Ear, Nose, Throat nasal congestion, pharyngeal erythema, tonsillar exudate Neck normal inspection, full range of motion, lymphadenopathy (R) Respiratory Status Yes: trachea midline, chest symmetrical, non tender chest. No: respiratory distress. Lung Sounds posterior: rhonchi. bilateral: normal breath sounds, lungs clear. left: normal breath sounds, lungs clear. right: rhonchi. Cardiovascular normal exam, regular rate/rhythm Peripheral Pulses Pulses normal Yes Neurologic alert, normal exam, oriented x 3 Medical Decision Making LABS/Meds/Orders Pt receiving controlled substance in ED? No Departure Departure Time of Disposition 1751 Disposition DC Home or Self Care(routine) Clinical Impression Primary Impression: Lymphadenopathy of right cervical region Secondary Impressions: Sore throat Condition STABLE Referrals Jose WAER,Teddy Moreno (Family) Patient Instructions Sore Throat Additional Instructions Stop Keflex Follow-up with PCP if no improvement Tylenol or ibuprofen as needed for pain or fever Return or be seen in the ER symptoms worsen or do not improve Discharge Counseling Counseled pt/family regarding diagnosis, medications/RX, home care, follow up needs Prescriptions Current Visit Scripts Amoxicillin Trihydrate (Amoxicillin 500MG) 500 MG PO BID 10 Days at 0188
--- NOTE | 2017-03-02 17:56 | Urgent Treatment Center Report ---
See Addendum History of Present Issue Date/Time Seen by Provider 03/02/17 6376 Visit Reason Pt arrived: Presenting Problem: Location if Accident: Onset of symptoms date/time:/ or onset unknown for: Have you (or family members/close friends) recently traveled outside the [place]? If Yes, where/when: Have you had exposure to infectious disease within the past month? TB? Other? Specify: Source patient, RN notes reviewed Exam Limitations no limitations Comment 21-year-old female presents for sore throat, enlarged lymph nodes, nasal congestion, and cough for 4 days. Patient states she's been taking over-the- counter medicine with no improvement. Patient reports taking Keflex for an ingrown toenail. ALLERGIES Coded Allergies: meperidine (From DEMEROL) (10/30/16) Home Medications Discontinued Scripts Oxycodone 5MG/[id number] (Oxycodone-Acetaminophen 5-325) 1-2 TAB PO Q4HP PRN MODERATE TO SEVERE PAIN #30 TAB Prov: 11/02/16 DC: 02/25/17850 Reported Medications Cephalexin (Keflex 500MG) Discontinued Reported Medications Polyethylene Glycol 3350 (Miralax) 17 GM PO DAILY Vit/Iron Fumarate/FA (Classic Tablet) 1 TAB PO DAILY #30 TAB DC: 02/25/1751 DIGOXIN (Digox) 0.125 MG PO DAILY BISOPROLOL FUMARATE (Bisoprolol 5MG) 2.5 MG PO DAILY Ferrous Sulfate (Ferrous Sulfate 325MG) 325 MG PO DAILY #30 DC: 02/25/1751 History Medical History General CAD? No Angina: No LA: No Hypertension? No Hyperlipidemia? No CHF? No DVT? No PE? No COPD? No Asthma? No Anemia? No GERD? No Gastric ulcers? No GI Bleed? No Hernia? No Thyroid Problems? No Hypothyroidism? No CVA? No Seizures? No Diabetes? No Renal Insuffiency? No UTI? No Stones? No BPH? No GB Disease: No Nephritic Syndrome? No Asplenia? No Hepatitis? No Sickle Cell Disease? No Arthritis? No Migraines? No Cataracts? No Glaucoma? No MRSA? No HIV? No TB? No Anxiety? No Depression? No Cancer? No More? Yes Additional hx: SVT Immunization HX DT/Tetanus 1-4 YRS Flu 2014-15FSN Pneumonia Refuses Surgical Hx Previous Surgery?Y WISDOM TEETH - 2014,2017 HEART ABLASION - 2017 Family History Family HX Diabetes Yes Hypertension Yes Cancer Yes TB No Social History Alcohol Alcohol: No Review of Systems All Other Systems Reviewed and Negative ENT see HPI, throat pain. Respiratory denies no symptoms reported Physical Exam Vital Signs Vital Signs Date Time Temp Pulse Resp B/P Pulse O2 O2 Flow FiO2 Ox Delivery Rate 03/02 1746 98.0 96 18 104/63 96 - WBC >12,000 or <4,000 or 10% bands? 2 or more SIRS Criteria Met? B/P: MAP: Creatinine >2.0? UA output<0.5ml/kg/hr for 2 hrs? Platelet count >100,000? Lactate >2.0mmol/1? INR >1.2 or PTT > than 60 sec? Evidence of Organ Dysfunction? Provider documented clinical suspician of infection? Sepsis Criteria Count: Sepsis Risk: General Appearance normal appearance, no apparent distress Eye Exam - bilateral eye normal exam, bilateral eye PERRL, bilateral eye EOMI Ear, Nose, Throat nasal congestion, pharyngeal erythema, tonsillar exudate Neck normal inspection, full range of motion, lymphadenopathy (R) Respiratory Status Yes: trachea midline, chest symmetrical, non tender chest. No: respiratory distress. Lung Sounds posterior: rhonchi. bilateral: normal breath sounds, lungs clear. left: normal breath sounds, lungs clear. right: rhonchi. Cardiovascular normal exam, regular rate/rhythm Peripheral Pulses Pulses normal Yes Neurologic alert, normal exam, oriented x 3 Medical Decision Making LABS/Meds/Orders Pt receiving controlled substance in ED? No Departure Departure Time of Disposition 1751 Disposition DC Home or Self Care(routine) Clinical Impression Primary Impression: Lymphadenopathy of right cervical region Secondary Impressions: Sore throat Condition STABLE Referrals Jose WARE,Teddy Moreno (Family) Patient Instructions Sore Throat Additional Instructions Stop Keflex Follow-up with PCP if no improvement Tylenol or ibuprofen as needed for pain or fever Return or be seen in the ER symptoms worsen or do not improve Discharge Counseling Counseled pt/family regarding diagnosis, medications/RX, home care, follow up needs Prescriptions Current Visit Scripts Amoxicillin Trihydrate (Amoxicillin 500MG) 500 MG PO BID 10 Days at 3048
--- OUTSIDE RECORDS SUMMARY | 2017-03-02 17:56 | External Medical Summary Rpt | CCD ---
Author Author , TRAE Organization [facility] Address Unknown Phone [email or web address] Immunization Name Date Rout CVX Reac Dose Comm Prov Is Faci e tion ent ider Refu lity Give sed n HPV4 06-2 62 999 Hist H149 No H149 8-20 oric (Gar 11 al dasi Info l) rmat ion - Sour ce Unsp ecif ied Vari 06-2 21 999 Hist H149 No H149 cell 8-20 oric a 11 al Info rmat ion - Sour ce Unsp ecif ied HPV4 06-2 62 999 Hist H149 No H149 9-20 oric (Gar 09 al dasi Info l) rmat ion - Sour ce Unsp ecif ied Meni 04-2 32 999 Hist H149 No H149 bella 7-20 oric occa 09 al l Info MPSV rmat 4 ion - Sour ce Unsp ecif ied HPV4 04-2 62 999 Hist H149 No H149 7-20 oric (Gar 09 al dasi Info l) rmat ion - Sour ce Unsp ecif ied Tdap 05-2 115 999 Hist H149 No H149 , 1-20 oric Adso 08 al rbed Info rmat ion - Sour ce Unsp ecif ied MMR 05-1 3 999 Hist H149 No H149 9-20 oric 00 al Info rmat ion - Sour ce Unsp ecif ied DTaP 05-1 107 999 Hist H149 No H149 , UF 9-20 oric 00 al Info rmat ion - Sour ce Unsp ecif ied Bright 05-1 10 999 Hist H149 No H149 o-IP 9-20 oric V 00 al Info rmat ion - Sour ce Unsp ecif ied Hep 08-0 8 999 Hist H149 No H149 B, 4-19 oric ped/ 97 al adol Info rmat ion - Sour ce Unsp ecif ied DTP- 06-0 22 999 Hist H149 No H149 Hib 4-19 oric 97 al Info rmat ion - Sour ce Unsp ecif ied MMR 06-0 3 999 Hist H149 No H149 4-19 oric 97 al Info rmat ion - Sour ce Unsp ecif ied Vari 06-0 21 999 Hist H149 No H149 cell 4-19 oric a 97 al Info rmat ion - Sour ce Unsp ecif ied Bright 11-1 2 999 Hist H149 No H149 o-OP 9-19 oric V 96 al Info rmat ion - Sour ce Unsp ecif ied DTP- 11-1 22 999 Hist H149 No H149 Hib 9-19 oric 96 al Info rmat ion - Sour ce Unsp ecif ied Bright 07-1 2 999 Hist H149 No H149 o-OP 6-19 oric V 96 al Info rmat ion - Sour ce Unsp ecif ied DTP- 07-1 22 999 Hist H149 No H149 Hib 6-19 oric 96 al Info rmat ion - Sour ce Unsp ecif ied DTP- 05-0 22 999 Hist H149 No H149 Hib 2-19 oric 96 al Info rmat ion - Sour ce Unsp ecif ied Bright 05-0 2 999 Hist H149 No H149 o-OP 2-19 oric V 96 al Info rmat ion - Sour ce Unsp ecif ied Hep 05-0 45 999 Hist H149 No H149 B, 2-19 oric UF 96 al Info rmat ion - Sour ce Unsp ecif ied
--- OUTSIDE RECORDS SUMMARY | 2017-03-02 17:56 | External Medical Summary Rpt | CCD ---
Author Author , TRAE Organization [facility] Address Unknown Phone [email or web address] Immunization Name Date Rout CVX Reac Dose [...]
--- OUTSIDE RECORDS SUMMARY | 2017-03-02 17:56 | External Medical Summary Rpt ---
Author Author NIHARIKADERREK Perez, [employer] Organization [employer] Address Unknown Phone Unavailable Results ELECTROPHYSIOLOGY PROCEDURE Observa Value Referen Units Interpr Notes Date tion ce etation Range This is No No No No Dec 20 a informa informa informa informa 2016 summary tion in tion in tion in tion in 9:30 AM source source source source report. data data data data The complet e report is availab le in the patient 's medical record. If you cannot access the medical record, please contact the sending organiz ation for a detaile d fax or copy.\. 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 \.br\ Non inducib le at end of procedu re\.br\ No manifes t or conceal ed accesso ry pathway \.br\ Normal H-V interva l\.br\ Retrogr jatin AV steve conduct ion is present TSH Observa Value Referen Units Interpr Notes Date tion ce etation Range Thyrotr 2.380 0.270 - mcIU/mL No No Dec 20 opin 4.200 informa informa 2016 [Units/ tion in tion in 7:27 AM volume] source source in data data Serum or Plasma Auto Diff Observa Value Referen Units Interpr Notes Date tion ce etation Range Neutrop 56.0 No % No No Dec 20 hils informa informa informa 2016 [#/volu tion in tion in tion in 7:01 AM me] in source source source Blood data data data by Automat ed count Lymphoc 31.9 No % No No Dec 20 ytes informa informa informa 2016 [#/volu tion in tion in tion in 7:01 AM me] in source source source Blood data data data by Automat ed count Monocyt 8.3 No % No No Dec 20 es informa informa informa 2016 [#/volu tion in tion in tion in 7:01 AM me] in source source source Blood data data data by Automat ed count Eos 3.2 No % No No Dec 17 Percent informa informa informa 2017 tion in tion in tion in 7:01 AM source source source data data data Baso 0.6 No % No No Dec 17 Percent informa informa informa 2017 tion in tion in tion in 7:01 AM source source source data data data Neut# 2.6 1.8 - x10(3)/ No No Dec 17 7.7 mcL informa informa 2017 tion in tion in 7:01 AM source source data data Lymph# 1.5 0.6 - x10(3)/ No No Dec 17 4.8 mcL informa informa 2017 tion in tion in 7:01 AM source source data data [place]# 0.4 0.0 - x10(3)/ No No Dec 17 1.3 mcL informa informa 2017 tion in tion in 7:01 AM source source data data Eos# 0.2 0.0 - x10(3)/ No No Dec 17 0.5 mcL informa informa 2017 tion in tion in 7:01 AM source source data data Baso# 0.0 0.0 - x10(3)/ No No Dec 17 0.2 mcL informa informa 2017 tion in tion in 7:01 AM source source data data CBC Observa Value Referen Units Interpr Notes Date tion ce etation Range Do not repeat if done in the past 10 days. LEUKOCY 4.7 4.0 - x10(3)/ No No Dec 17 PATRICIA 11.0 mcL informa informa 2017 tion in tion in 7:01 AM source source data data Erythro 4.32 3.80 - x10(6)/ No No Dec 20 cytes 5.10 mcL informa informa 2017 [#/volu tion in tion in 7:01 AM me] in source source Blood data data by Automat ed count Hemoglo 12.9 12.0 - gm/dL No No Dec 20 bin 15.6 informa informa 2017 [Mass/v tion in tion in 7:01 AM olume] source source in data data Blood Hematoc 37.4 35.7 - % No Dec 20 rit 45.9 informa informa 2017 [Volume tion in tion in 7:01 AM source source Fractio data data n] of Blood by Automat ed count Erythro 86.6 82.5 - fL No No Dec 20 cyte 99.8 informa informa 2017 mean tion in tion in 7:01 AM corpusc source source ular data data volume [Entiti c volume] by Automat ed count Erythro 29.9 27.0 - pg No No Dec 20 cyte 34.3 informa informa 2017 mean tion in tion in 7:01 AM corpusc source source ular data data hemoglo bin [Entiti c mass] by Automat ed count Erythro 34.5 32.1 - gm/dL No No Dec 20 cyte 35.3 informa informa 2017 mean tion in tion in 7:01 AM corpusc source source ular data data hemoglo bin concent ration [Mass/v olume] by Automat ed count Erythro 14.4 11.5 - % No Dec 20 cyte 15.0 informa informa 2017 distrib tion in tion in 7:01 AM ution source source width data data [Ratio] by Automat ed count Platele 230 144 - x10(3)/ No No Dec 20 ts 423 mcL informa informa 2016 [#/volu tion in tion in 7:01 AM me] in source source Blood data data by Automat ed count MPV 7.5 6.8 - fL No No Dec 20 10.8 informa informa 2017 tion in tion in 7:01 AM source source data data
--- OUTSIDE RECORDS SUMMARY | 2017-03-02 17:56 | External Medical Summary Rpt ---
[...] in 7:01 AM source source data data [place]# 0.4 0.0 - x10(3)/ No No Dec [...]
[2017-03-02 17:59] VITALS: BP 104/63
== END 2017-03-02 18:01 | disposition home or self-care (01) ==
LOC: UTC 17:33
DX: L04.0 Acute lymphadenitis of face, head and neck (principal)